=== PATIENT | female | born 1940 | race Caucasian/White ===

== ENCOUNTER 2018-11-09 11:14 | Inpatient (IN) ==
[2018-11-09] MEDS ORDERED: FUROSEMIDE 100 MG/10 ML VIAL IV STA (12:02)
[2018-11-09 12:37] LABS: Basophils # 0.1 10*3/uL (0.0-0.2); Basophils % 0.9 % (0.0-0.8); Eosinophils # 0.2 10*3/uL (0.0-0.87); Eosinophils % 2.9 % (0.00-10.9); Hematocrit 28.8 VOL% (35.7-47.0); Hemoglobin 8.3 GM/DL (12.0-16.0); Immature Granulocytes % 0.5 %; Immature Granulocytes Absolute 0.04 #; Lymphocytes # 0.7 10*3/uL (1.4-4.0); Lymphocytes % 9.5 % (21.3-54.2); Mean Corpuscular HGB Conc 28.8 GM/DL (32-36); Mean Corpuscular Volume 84.2 FL (87-102); Mean Platelet Volume 10.5 FL (9.6-12.0); Monocytes % 11.5 % (1.7-12.7); Neutrophils % 74.7 % (38.7-73.9); Platelet Count 271 T/CUMM (130-400); Red Blood Count 3.42 MC/CUMM (3.8-5.5); Red Cell Distribution Width 17.7 % (9.3-17.3); White Blood Count 7.7 T/CUMM (4-12)
[2018-11-09 12:59] LABS: Hypochromasia 1+; Microcytosis 1+; Ovalocytes Few
[2018-11-09 13:00] LABS: Platelet Estimate Normal; Polychromasia Slight
[2018-11-09 13:02] LABS: Bilirubin,Total 0.4 MG/DL (0.2-1.0); Calcium 7.8 MG/DL (8.5-10.1); Total Protein 4.2 G/DL (6.4-8.3)
[2018-11-09 13:11] LABS: INR 2.8
[2018-11-09 13:12] LABS: PT Patient Result 29.9 SECS
[2018-11-09 13:33] LABS: Apearance,Urine CLEAR (Clear); Urine Color Colorless (Yellow)
[2018-11-09 13:34] LABS: Bacteria,Urine Occasional /HPF (Few); Bilirubin,Urine Negative (Negative); Blood, Urine Negative (Negative); Glucose,Urine (UA) Negative (Negative); Hyaline Casts,Urine 8 /LPF (0-3); Ketones,Urine Negative (Negative); Mucus,Urine Occasional /LPF (Occasional); Nitrite,Urine Negative (Negative); Protein,Urine Negative; RBC,Urine <1 /HPF (0-4); Squamous Epithelial Cell,Urine Occasional /HPF (0-10); Urine Specific Gravity 1.006 (1.001-1.035); Urine Urobilinogen < 2.0 EU/DL (0.2-1.0)
[2018-11-09] MEDS ORDERED: ACETAMINOPHEN 325 MG TABLET PO PRN (15:57)
[2018-11-09] MEDS ORDERED: BISACODYL 5 MG TABLET PO PRN (15:57)
[2018-11-09] MEDS ORDERED: diphenhydrAMINE CAP 25 MG CAPSULE PO PRN (15:57)
[2018-11-09] MEDS ORDERED: guaiFENesin/DM ER 600-30 MG TABLET PO PRN (15:57)
[2018-11-09] MEDS ORDERED: ONDANSETRON 4 MG/2 ML VIAL IV PRN (15:57)
[2018-11-09] MEDS ORDERED: DOCUSATE SODIUM 100 MG CAPSULE PO PRN (15:57)
[2018-11-09] MEDS ORDERED: ENOXAPARIN 40 MG/0.4 ML SYRINGE SUBCUT SCH (16:00)
[2018-11-09] MEDS ORDERED: ALBUMIN 25% 25 GM in PREMIX 1 EACH IV ONE (17:37)
[2018-11-09] MEDS: WARFARIN 2 MG TABLET PO SCH (18:35)
[2018-11-09] MEDS: POTASSIUM CHLORIDE 20 MEQ TABLET PO SCH (21:23)
[2018-11-09] MEDS: SPIRONOLACTONE 25 MG TABLET PO SCH (21:24)
[2018-11-09] MEDS: FUROSEMIDE 40 MG/4 ML VIAL IV SCH (23:47)
[2018-11-10 06:00] LABS: Basophils # 0.1 10*3/uL (0.0-0.2); Basophils % 0.7 % (0.0-0.8); Eosinophils # 0.3 10*3/uL (0.0-0.87); Eosinophils % 3.7 % (0.00-10.9); Hematocrit 27.3 VOL% (35.7-47.0); Hemoglobin 7.8 GM/DL (12.0-16.0); INR 2.9; Immature Granulocytes % 0.7 %; Immature Granulocytes Absolute 0.05 #; Lymphocytes # 0.6 10*3/uL (1.4-4.0); Lymphocytes % 8.2 % (21.3-54.2); Mean Corpuscular HGB Conc 28.6 GM/DL (32-36); Mean Corpuscular Volume 83.7 FL (87-102); Mean Platelet Volume 11.3 FL (9.6-12.0); Monocytes % 12.4 % (1.7-12.7); Neutrophils % 74.3 % (38.7-73.9); Platelet Count 255 T/CUMM (130-400); Red Blood Count 3.26 MC/CUMM (3.8-5.5); Red Cell Distribution Width 17.9 % (9.3-17.3); White Blood Count 7.1 T/CUMM (4-12)
[2018-11-10 06:01] LABS: % Iron Saturation 4.6 % (18-50); Albumin 2.3 G/DL (3.4-5.0); Bilirubin,Direct 0.17 MG/DL (0.0-0.20); Bilirubin,Indirect 0.9 MG/DL (0.0-1.0); Bilirubin,Total 1.1 MG/DL (0.2-1.0); Ferritin 8.5 ng/ml (8-252); Total Protein 4.8 G/DL (6.4-8.3)
[2018-11-10 06:03] LABS: Calcium 7.9 MG/DL (8.5-10.1); Thyroid Stimulating Hormone 0.834 uIU/ml (0.358-3.74)
[2018-11-10 06:20] LABS: PT Patient Result 30.8 SECS
[2018-11-10] MEDS ORDERED: FUROSEMIDE 40 MG/4 ML VIAL IV SCH (08:00)
[2018-11-10] MEDS: FUROSEMIDE 40 MG/4 ML VIAL IV SCH ×2 (08:22→16:28)
[2018-11-10] MEDS: POTASSIUM CHLORIDE 20 MEQ TABLET PO SCH ×2 (08:23→21:20)
[2018-11-10] MEDS: hydroCHLOROthiazide 12.5 MG CAPSULE PO SCH (08:23)
[2018-11-10] MEDS: PANTOPRAZOLE 40 MG TABLET PO SCH (08:23)
[2018-11-10] MEDS: LOSARTAN 25 MG TABLET PO SCH (08:23)
[2018-11-10] MEDS: ALLOPURINOL 300 MG TABLET PO SCH (08:23)
[2018-11-10 12:31] LABS: Immunoglobulin A 215 MG/DL (70-400); Immunoglobulin G 349 MG/DL (700-1600); Immunoglobulin M 38 MG/DL (40-230)
[2018-11-10] MEDS ORDERED: ALBUMIN 25% 25 GM in PREMIX 1 EACH IV ONE (18:00)
[2018-11-10] MEDS: WARFARIN 2 MG TABLET PO SCH (18:15)
[2018-11-10] MEDS: SPIRONOLACTONE 25 MG TABLET PO SCH (21:20)
[2018-11-11 06:56] LABS: Basophils % 0.5 % (0.0-0.8); Eosinophils # 0.3 10*3/uL (0.0-0.87); Eosinophils % 4.1 % (0.00-10.9); Hematocrit 26.7 VOL% (35.7-47.0); Hemoglobin 7.9 GM/DL (12.0-16.0); Immature Granulocytes % 0.8 %; Immature Granulocytes Absolute 0.06 #; Lymphocytes # 0.8 10*3/uL (1.4-4.0); Mean Corpuscular HGB Conc 29.6 GM/DL (32-36); Mean Corpuscular Volume 82.9 FL (87-102); Mean Platelet Volume 11.2 FL (9.6-12.0); Monocytes % 10.1 % (1.7-12.7); Neutrophils % 73.5 % (38.7-73.9); Platelet Count 278 T/CUMM (130-400); Red Blood Count 3.22 MC/CUMM (3.8-5.5); White Blood Count 7.6 T/CUMM (4-12)
[2018-11-11 06:59] LABS: INR 2.2
[2018-11-11 07:01] LABS: PT Patient Result 23.3 SECS
[2018-11-11 07:19] LABS: Albumin 2.4 G/DL (3.4-5.0); Bilirubin,Direct 0.15 MG/DL (0.0-0.20); Bilirubin,Indirect 0.7 MG/DL (0.0-1.0); Bilirubin,Total 0.8 MG/DL (0.2-1.0); Calcium 7.9 MG/DL (8.5-10.1); Total Protein 4.7 G/DL (6.4-8.3)
[2018-11-11 07:27] LABS: Folate 11.6 NG/ML (5.4-24.0)
[2018-11-11] MEDS: FUROSEMIDE 40 MG/4 ML VIAL IV SCH ×3 (09:04→16:46)
[2018-11-11] MEDS: LOSARTAN 25 MG TABLET PO SCH (10:01)
[2018-11-11] MEDS: hydroCHLOROthiazide 12.5 MG CAPSULE PO SCH (10:02)
[2018-11-11] MEDS: POTASSIUM CHLORIDE 20 MEQ TABLET PO SCH ×2 (10:02→21:49)
[2018-11-11] MEDS: PANTOPRAZOLE 40 MG TABLET PO SCH (10:02)
[2018-11-11] MEDS: ALLOPURINOL 300 MG TABLET PO SCH (10:03)
[2018-11-11] MEDS ORDERED: IRON SUCROSE 300 MG in SODIUM CHLORIDE 0.9% 100 ML IV ONE (11:41)
[2018-11-11] MEDS: CYANOCOBALAMIN 1000 MCG/1 ML VIAL SUBCUT SCH (12:02)
[2018-11-11 15:11] LABS: Total Protein 24 Hr Ur Result 122 MG/24HR (0-149.1); Total Volume,Urine 1750 ML (400-2000)
[2018-11-11] MEDS: ALBUMIN 25% 12.5 GM in PREMIX 1 EACH IV SCH (17:08)
[2018-11-11] MEDS: WARFARIN 2 MG TABLET PO SCH (17:09)
[2018-11-11] MEDS: SPIRONOLACTONE 25 MG TABLET PO SCH (21:49)
[2018-11-12] MEDS: ACETAMINOPHEN 500 MG TABLET PO PRN ×2 (01:17→22:46)
[2018-11-12] MEDS: ALBUMIN 25% 12.5 GM in PREMIX 1 EACH IV SCH ×3 (01:18→20:26)
[2018-11-12 06:32] LABS: Basophils % 0.8 % (0.0-0.8); Hematocrit 26.5 VOL% (35.7-47.0); Hemoglobin 7.5 GM/DL (12.0-16.0); Lymphocytes % 10.1 % (21.3-54.2); Mean Corpuscular HGB Conc 28.3 GM/DL (32-36); Mean Corpuscular Volume 84.1 FL (87-102); Mean Platelet Volume 10.8 FL (9.6-12.0); Monocytes % 13.3 % (1.7-12.7); Neutrophils % 70.1 % (38.7-73.9); Platelet Count 246 T/CUMM (130-400); Red Blood Count 3.15 MC/CUMM (3.8-5.5); White Blood Count 7.2 T/CUMM (4-12)
[2018-11-12 06:33] LABS: Basophils # 0.1 10*3/uL (0.0-0.2); Eosinophils # 0.4 10*3/uL (0.0-0.87); Immature Granulocytes % 0.7 %; Immature Granulocytes Absolute 0.05 #; Lymphocytes # 0.7 10*3/uL (1.4-4.0); NRBC # 0.02 10*3/uL
[2018-11-12 06:43] LABS: INR 2.6
[2018-11-12 06:46] LABS: Calcium 7.9 MG/DL (8.5-10.1); Osmolality,Calculated 291.3 MOS/KG (273-304)
[2018-11-12 06:47] LABS: PT Patient Result 27.5 SECS
[2018-11-12 07:30] LABS: Hypochromasia 2+; Macrocytosis Slight; Microcytosis 1+; Ovalocytes Few; Polychromasia Few; Schistocytes Few
[2018-11-12 07:31] LABS: Elliptocytes Few
[2018-11-12 07:32] LABS: Platelet Estimate Normal
[2018-11-12] MEDS: CHOLECALCIFEROL 5,000 UNIT TABLET PO SCH (08:10)
[2018-11-12] MEDS: ALLOPURINOL 100 MG TABLET PO SCH (08:10)
[2018-11-12] MEDS: POTASSIUM CHLORIDE 20 MEQ TABLET PO SCH ×2 (08:10→20:25)
[2018-11-12] MEDS: PANTOPRAZOLE 40 MG TABLET PO SCH (08:11)
[2018-11-12] MEDS: CYANOCOBALAMIN 1000 MCG/1 ML VIAL SUBCUT SCH (08:14)
[2018-11-12] MEDS: LOSARTAN 25 MG TABLET PO SCH (08:42)
[2018-11-12] MEDS: hydroCHLOROthiazide 12.5 MG CAPSULE PO SCH (08:42)
[2018-11-12] MEDS: FUROSEMIDE 40 MG/4 ML VIAL IV SCH ×2 (08:53→15:44)
[2018-11-12] MEDS: WARFARIN 2 MG TABLET PO SCH (18:18)
[2018-11-12] MEDS: SPIRONOLACTONE 25 MG TABLET PO SCH (20:25)
[2018-11-13] MEDS: ALBUMIN 25% 12.5 GM in PREMIX 1 EACH IV SCH ×2 (07:26→09:00)
[2018-11-13] MEDS: CYANOCOBALAMIN 1000 MCG/1 ML VIAL SUBCUT SCH (08:11)
[2018-11-13] MEDS: ALLOPURINOL 100 MG TABLET PO SCH (08:11)
[2018-11-13] MEDS: FUROSEMIDE 40 MG/4 ML VIAL IV SCH (08:11)
[2018-11-13] MEDS: PANTOPRAZOLE 40 MG TABLET PO SCH (08:12)
[2018-11-13] MEDS: POTASSIUM CHLORIDE 20 MEQ TABLET PO SCH (08:12)
[2018-11-13] MEDS: CHOLECALCIFEROL 5,000 UNIT TABLET PO SCH (08:12)
[2018-11-13 08:52] VITALS: BP 117/57
[2018-11-15 09:32] LABS: Immunoglobulin A (Chem) 215 MG/DL (70-400); Immunoglobulin G (Chem) 349 MG/DL (700-1600); Immunoglobulin M (Chem) 38 MG/DL (40-230)
[2018-11-16 12:11] LABS: Immuno Free Light Chain Kappa 10.82 MG/DL (0.33-1.94); Immuno Free Light Chain Lambda 3.31 MG/DL (0.57-2.63); Immuno Free Light Chain Ratio 3.27 MG/DL (0.26-1.65)
== END 2018-11-13 13:08 | disposition home or self-care (01) | DRG 843 ==
LOC: N.ED 11:14 → N.EDINP 15:57 → N.5E 16:26
PROVIDERS: ADMIT Internal Medicine; ATTEND Internal Medicine

== ENCOUNTER 2019-04-23 07:30 | Inpatient (IN) ==
[2019-04-23 08:39] LABS: Basophils # 0.1 10*3/uL (0.0-0.2); Basophils % 1.1 % (0.0-0.8); Eosinophils # 0.2 10*3/uL (0.0-0.87); Eosinophils % 2.4 % (0.00-10.9); Hematocrit 34.3 VOL% (35.7-47.0); Hemoglobin 10.6 GM/DL (12.0-16.0); Immature Granulocytes % 0.5 %; Immature Granulocytes Absolute 0.04 #; Lymphocytes # 0.6 10*3/uL (1.4-4.0); Lymphocytes % 6.9 % (21.3-54.2); Mean Corpuscular HGB Conc 30.9 GM/DL (32-36); Mean Corpuscular Volume 94.8 FL (87-102); Monocytes % 10.2 % (1.7-12.7); Neutrophils % 78.9 % (38.7-73.9); Platelet Count 245 T/CUMM (130-400); Red Blood Count 3.62 MC/CUMM (3.8-5.5); Red Cell Distribution Width 15.2 % (9.3-17.3)
[2019-04-23 08:58] LABS: INR 3.6; PT Patient Result 38.7 SECS (9.6-12.2); Partial Thromboplastin Time 47.5 SECS (20.8-36.0)
[2019-04-23 09:12] LABS: Alanine Aminotransferase 15 U/L (13-56); Albumin 1.7 G/DL (3.4-5.0); Alkaline Phosphatase 71 U/L (45-117); Aspartate Amino Transferase 33 U/L (0-37); Bilirubin,Total < 0.39 MG/DL (0.2-1.0); Blood Urea Nitrogen 31 MG/DL (7-18); Calcium 7.9 MG/DL (8.5-10.1); Estimated Glom Filtration Rate 76 ML/MIN; Glucose 109 MG/DL (74-106); Osmolality,Calculated 290.1 MOS/KG (273-304); Total Protein 5.3 G/DL (6.4-8.3)
[2019-04-23] MEDS ORDERED: FUROSEMIDE 40 MG/4 ML VIAL IV STA (09:19)
[2019-04-23 10:47] LABS: Apearance,Urine CLEAR (Clear); Bilirubin,Urine Negative (Negative); Blood, Urine Negative (Negative); Glucose,Urine (UA) Negative (Negative); Hyaline Casts,Urine 1 /LPF (0-3); Ketones,Urine Negative (Negative); Nitrite,Urine Negative (Negative); Protein,Urine Negative; RBC,Urine <1 /HPF (0-4); Squamous Epithelial Cell,Urine Occasional /HPF (0-10); Urine Color Straw (Yellow); Urine Specific Gravity 1.005 (1.001-1.035); Urine Urobilinogen < 2.0 EU/DL (0.2-1.0); WBC,Urine 1 /HPF (0-6)
[2019-04-23] MEDS ORDERED: MORPHINE 4 MG/1 ML VIAL IV PRN (10:56)
[2019-04-23] MEDS ORDERED: CYANOCOBALAMIN 1000 MCG/1 ML VIAL SUBCUT SCH (12:22)
[2019-04-23] MEDS ORDERED: ALBUMIN 25% 25 GM in PREMIX 1 EACH IV ONE (13:00)
[2019-04-23 13:43] LABS: Basophils # 0.1 10*3/uL (0.0-0.2); Eosinophils # 0.2 10*3/uL (0.0-0.87); Eosinophils % 2.2 % (0.00-10.9); Hematocrit 31.1 VOL% (35.7-47.0); Hemoglobin 9.7 GM/DL (12.0-16.0); Immature Granulocytes % 0.3 %; Immature Granulocytes Absolute 0.02 #; Lymphocytes # 0.5 10*3/uL (1.4-4.0); Lymphocytes % 7.9 % (21.3-54.2); Mean Corpuscular HGB Conc 31.2 GM/DL (32-36); Mean Corpuscular Volume 94.8 FL (87-102); Mean Platelet Volume 10.7 FL (9.6-12.0); Monocytes % 9.7 % (1.7-12.7); Neutrophils % 78.9 % (38.7-73.9); Platelet Count 217 T/CUMM (130-400); Red Blood Count 3.28 MC/CUMM (3.8-5.5); Red Cell Distribution Width 15.3 % (9.3-17.3); White Blood Count 6.8 T/CUMM (4-12)
[2019-04-23] MEDS: POTASSIUM CHLORIDE 20 MEQ TABLET PO SCH ×3 (14:15→21:34)
[2019-04-23 14:16] LABS: Alanine Aminotransferase 14 U/L (13-56); Albumin 1.6 G/DL (3.4-5.0); Alkaline Phosphatase 58 U/L (45-117); Aspartate Amino Transferase 30 U/L (0-37); Bilirubin,Total < 0.39 MG/DL (0.2-1.0); Blood Urea Nitrogen 29 MG/DL (7-18); Calcium 7.6 MG/DL (8.5-10.1); Estimated Glom Filtration Rate 66 ML/MIN; Glucose 126 MG/DL (74-106); Osmolality,Calculated 293.8 MOS/KG (273-304); Total Protein 4.4 G/DL (6.4-8.3)
[2019-04-23] MEDS: ALBUMIN 25% 25 GM in PREMIX 1 EACH IV SCH ×2 (14:16→18:30)
[2019-04-23] MEDS: FUROSEMIDE 40 MG/4 ML VIAL IV SCH (18:09)
[2019-04-23] MEDS ORDERED: hydroCHLOROthiazide 12.5 MG CAPSULE PO SCH (21:00)
[2019-04-23] MEDS: metOLazone 5 MG TABLET PO SCH (21:34)
[2019-04-23] MEDS: DOCUSATE SODIUM 100 MG CAPSULE PO SCH (21:34)
[2019-04-23] MEDS: ACETAMINOPHEN 325 MG TABLET PO PRN (21:36)
[2019-04-24 06:23] LABS: Basophils # 0.1 10*3/uL (0.0-0.2); Eosinophils # 0.4 10*3/uL (0.0-0.87); Hematocrit 29.2 VOL% (35.7-47.0); Hemoglobin 9.1 GM/DL (12.0-16.0); Immature Granulocytes % 0.3 %; Immature Granulocytes Absolute 0.02 #; Lymphocytes # 0.6 10*3/uL (1.4-4.0); Lymphocytes % 10.1 % (21.3-54.2); Mean Corpuscular HGB Conc 31.2 GM/DL (32-36); Mean Corpuscular Volume 95.4 FL (87-102); Mean Platelet Volume 11.1 FL (9.6-12.0); Monocytes % 12.9 % (1.7-12.7); Neutrophils % 68.7 % (38.7-73.9); Platelet Count 219 T/CUMM (130-400); Red Blood Count 3.06 MC/CUMM (3.8-5.5); Red Cell Distribution Width 15.5 % (9.3-17.3)
[2019-04-24] MEDS: ALBUMIN 25% 25 GM in PREMIX 1 EACH IV SCH ×2 (06:37→18:40)
[2019-04-24 06:41] LABS: INR 3.7
[2019-04-24 06:42] LABS: PT Patient Result 39.8 SECS (9.6-12.2)
[2019-04-24 06:49] LABS: Calcium 7.7 MG/DL (8.5-10.1); Osmolality,Calculated 294.7 MOS/KG (273-304)
[2019-04-24] MEDS: FUROSEMIDE 40 MG/4 ML VIAL IV SCH ×2 (09:36→16:57)
[2019-04-24] MEDS: DOCUSATE SODIUM 100 MG CAPSULE PO SCH ×2 (09:37→21:53)
[2019-04-24] MEDS: PANTOPRAZOLE 40 MG TABLET PO SCH (09:38)
[2019-04-24] MEDS: CITALOPRAM 20 MG TABLET PO SCH (09:38)
[2019-04-24] MEDS: POTASSIUM CHLORIDE 20 MEQ TABLET PO SCH ×4 (09:38→21:53)
[2019-04-24] MEDS: metOLazone 5 MG TABLET PO SCH ×2 (09:38→21:54)
[2019-04-24] MEDS: ALLOPURINOL 300 MG TABLET PO PRN (23:33)
[2019-04-24] MEDS: ACETAMINOPHEN 325 MG TABLET PO PRN (23:33)
[2019-04-25 04:44] LABS: Basophils # 0.1 10*3/uL (0.0-0.2); Basophils % 0.8 % (0.0-0.8); Eosinophils # 0.5 10*3/uL (0.0-0.87); Eosinophils % 7.3 % (0.00-10.9); Hematocrit 28.6 VOL% (35.7-47.0); Hemoglobin 8.8 GM/DL (12.0-16.0); Immature Granulocytes % 0.3 %; Immature Granulocytes Absolute 0.02 #; Lymphocytes # 0.5 10*3/uL (1.4-4.0); Lymphocytes % 7.3 % (21.3-54.2); Mean Corpuscular HGB Conc 30.8 GM/DL (32-36); Mean Platelet Volume 11.3 FL (9.6-12.0); Monocytes % 10.9 % (1.7-12.7); Neutrophils % 73.4 % (38.7-73.9); Platelet Count 209 T/CUMM (130-400); Red Blood Count 2.98 MC/CUMM (3.8-5.5); Red Cell Distribution Width 15.7 % (9.3-17.3); White Blood Count 6.6 T/CUMM (4-12)
[2019-04-25 04:57] LABS: INR 2.4
[2019-04-25 05:01] LABS: Osmolality,Calculated 290.1 MOS/KG (273-304)
[2019-04-25 05:09] LABS: PT Patient Result 25.5 SECS (9.6-12.2)
[2019-04-25] MEDS: ALBUMIN 25% 25 GM in PREMIX 1 EACH IV SCH ×2 (06:07→19:42)
[2019-04-25] MEDS: FUROSEMIDE 40 MG/4 ML VIAL IV SCH ×2 (09:18→16:05)
[2019-04-25] MEDS: CITALOPRAM 20 MG TABLET PO SCH (09:19)
[2019-04-25] MEDS: metOLazone 5 MG TABLET PO SCH (09:19)
[2019-04-25] MEDS: POTASSIUM CHLORIDE 20 MEQ TABLET PO SCH ×4 (09:19→20:42)
[2019-04-25] MEDS: DOCUSATE SODIUM 100 MG CAPSULE PO SCH ×2 (09:20→20:41)
[2019-04-25] MEDS: PANTOPRAZOLE 40 MG TABLET PO SCH (09:20)
[2019-04-25] MEDS ORDERED: metOLazone 5 MG TABLET PO SCH (15:30)
[2019-04-25] MEDS: ALLOPURINOL 300 MG TABLET PO PRN (20:41)
[2019-04-26 05:42] LABS: Basophils % 0.5 % (0.0-0.8); Eosinophils # 0.4 10*3/uL (0.0-0.87); Eosinophils % 5.8 % (0.00-10.9); Hematocrit 28.9 VOL% (35.7-47.0); Hemoglobin 9.1 GM/DL (12.0-16.0); Immature Granulocytes % 0.4 %; Immature Granulocytes Absolute 0.03 #; Lymphocytes # 0.6 10*3/uL (1.4-4.0); Lymphocytes % 8.4 % (21.3-54.2); Mean Corpuscular HGB Conc 31.5 GM/DL (32-36); Mean Platelet Volume 11.6 FL (9.6-12.0); Monocytes % 10.1 % (1.7-12.7); Neutrophils % 74.8 % (38.7-73.9); Platelet Count 214 T/CUMM (130-400); Red Blood Count 3.01 MC/CUMM (3.8-5.5); Red Cell Distribution Width 16.5 % (9.3-17.3); White Blood Count 7.7 T/CUMM (4-12)
[2019-04-26 05:44] LABS: INR 1.5; PT Patient Result 16.5 SECS (9.6-12.2)
[2019-04-26 06:08] LABS: Calcium 7.7 MG/DL (8.5-10.1); Osmolality,Calculated 298.6 MOS/KG (273-304)
[2019-04-26] MEDS ORDERED: POTASSIUM CHLORIDE 20 MEQ TABLET PO ONE (07:36)
[2019-04-26] MEDS: CITALOPRAM 20 MG TABLET PO SCH (08:25)
[2019-04-26] MEDS: DOCUSATE SODIUM 100 MG CAPSULE PO SCH ×2 (08:26→20:09)
[2019-04-26] MEDS: PANTOPRAZOLE 40 MG TABLET PO SCH (08:26)
[2019-04-26] MEDS: POTASSIUM CHLORIDE 20 MEQ TABLET PO SCH ×4 (08:28→20:09)
[2019-04-26] MEDS ORDERED: metOLazone 5 MG TABLET PO SCH (09:00)
[2019-04-26] MEDS: FUROSEMIDE 40 MG/4 ML VIAL IV SCH ×2 (09:24→16:22)
[2019-04-26] MEDS: ALBUMIN 25% 25 GM in PREMIX 1 EACH IV SCH ×2 (11:17→22:27)
[2019-04-26] MEDS ORDERED: MAGNESIUM SULF RIDER 2 GM in PREMIX 1 EACH IV ONE (15:02)
[2019-04-26] MEDS ORDERED: MAGNESIUM SULF RIDER 2 GM in PREMIX 1 EACH IV PRN (15:10)
[2019-04-26 16:58] LABS: Glucose,Pleural Fluid 132 MG/DL; LDH,Body Fluid 76 U/L; Total Protein,Body Fluid < 1.0 G/DL
[2019-04-26 17:03] LABS: Eosinophils,Pleural Fluid 1 %; Lymphocytes,Pleural Fluid 72 %; Monocytes,Pleural Fluid 6 %; Neutrophils,Pleural Fluid 21 %
[2019-04-26 17:04] LABS: RBC,Pleural Fluid 507 T/CUMM
[2019-04-26] MEDS: ONDANSETRON 4 MG/2 ML VIAL IV PRN (20:08)
[2019-04-26] MEDS: MAGNESIUM OXIDE 400 MG TABLET PO SCH (20:09)
[2019-04-27 03:28] LABS: Basophils # 0.1 10*3/uL (0.0-0.2); Basophils % 0.7 % (0.0-0.8); Eosinophils # 0.4 10*3/uL (0.0-0.87); Hematocrit 29.6 VOL% (35.7-47.0); Hemoglobin 9.2 GM/DL (12.0-16.0); Immature Granulocytes % 0.4 %; Immature Granulocytes Absolute 0.04 #; Lymphocytes # 0.6 10*3/uL (1.4-4.0); Mean Corpuscular HGB Conc 31.1 GM/DL (32-36); Mean Platelet Volume 10.7 FL (9.6-12.0); Monocytes % 6.9 % (1.7-12.7); Platelet Count 199 T/CUMM (130-400); Red Blood Count 3.05 MC/CUMM (3.8-5.5); Red Cell Distribution Width 16.9 % (9.3-17.3); White Blood Count 9.1 T/CUMM (4-12)
[2019-04-27 03:36] LABS: INR 1.4
[2019-04-27 03:45] LABS: Calcium 7.7 MG/DL (8.5-10.1)
[2019-04-27] MEDS: POTASSIUM CHLORIDE RIDER 10 MEQ in PREMIX 1 EACH IV PRN ×2 (04:10→05:10)
[2019-04-27] MEDS ORDERED: HEPARIN/NACL 0.9% 2 UNITS/ML 0 ML IV ONE (06:49)
[2019-04-27] MEDS ORDERED: LIDOCAINE 1% 20 ML VIAL ONE (06:49)
[2019-04-27] MEDS ORDERED: DIAZEPAM 5 MG TABLET PO ONE (07:00)
[2019-04-27] MEDS ORDERED: diphenhydrAMINE CAP 25 MG CAPSULE PO ONE (07:00)
[2019-04-27] MEDS ORDERED: POTASSIUM CHLORIDE 20 MEQ TABLET PO ONE ×2 (07:15→11:00)
[2019-04-27] MEDS: SPIRONOLACTONE 50 MG TABLET PO SCH (11:12)
[2019-04-27] MEDS: CITALOPRAM 20 MG TABLET PO SCH (11:12)
[2019-04-27] MEDS: PANTOPRAZOLE 40 MG TABLET PO SCH (11:13)
[2019-04-27] MEDS: POTASSIUM CHLORIDE 20 MEQ TABLET PO SCH ×4 (11:13→20:32)
[2019-04-27] MEDS: MAGNESIUM OXIDE 400 MG TABLET PO SCH ×2 (11:13→20:32)
[2019-04-27] MEDS: DOCUSATE SODIUM 100 MG CAPSULE PO SCH ×2 (11:17→20:32)
[2019-04-27] MEDS: FUROSEMIDE 40 MG/4 ML VIAL IV SCH ×2 (11:42→16:51)
[2019-04-27] MEDS: ALBUMIN 25% 25 GM in PREMIX 1 EACH IV SCH ×2 (11:46→23:55)
[2019-04-27] MEDS: HEPARIN DRIP 25,000 UNITS/500 ML PREMIX IV SCH (13:04)
[2019-04-27 19:57] LABS: Total Protein 24 Hr Ur Result 114 MG/24HR (0-149.1); Total Volume,Urine 1900 ML (400-2000)
[2019-04-28 06:19] LABS: INR 1.3; PT Patient Result 14.4 SECS (9.6-12.2)
[2019-04-28 06:21] LABS: Basophils # 0.1 10*3/uL (0.0-0.2); Basophils % 0.9 % (0.0-0.8); Eosinophils # 0.7 10*3/uL (0.0-0.87); Eosinophils % 7.7 % (0.00-10.9); Hematocrit 30.6 VOL% (35.7-47.0); Hemoglobin 9.4 GM/DL (12.0-16.0); Immature Granulocytes % 0.4 %; Immature Granulocytes Absolute 0.03 #; Lymphocytes # 0.6 10*3/uL (1.4-4.0); Lymphocytes % 6.9 % (21.3-54.2); Mean Corpuscular HGB Conc 30.7 GM/DL (32-36); Mean Corpuscular Volume 98.4 FL (87-102); Mean Platelet Volume 11.6 FL (9.6-12.0); Monocytes % 9.7 % (1.7-12.7); Neutrophils % 74.4 % (38.7-73.9); Platelet Count 200 T/CUMM (130-400); Red Blood Count 3.11 MC/CUMM (3.8-5.5); Red Cell Distribution Width 17.4 % (9.3-17.3); White Blood Count 8.6 T/CUMM (4-12)
[2019-04-28 06:23] LABS: Calcium 7.7 MG/DL (8.5-10.1); Osmolality,Calculated 297.1 MOS/KG (273-304)
[2019-04-28] MEDS ORDERED: POTASSIUM CHLORIDE RIDER 10 MEQ in PREMIX 1 EACH IV PRN (07:00)
[2019-04-28] MEDS: CITALOPRAM 20 MG TABLET PO SCH ×2 (07:12→09:40)
[2019-04-28] MEDS: POTASSIUM CHLORIDE 20 MEQ TABLET PO SCH ×5 (07:14→20:43)
[2019-04-28] MEDS: PANTOPRAZOLE 40 MG TABLET PO SCH ×2 (07:15→09:41)
[2019-04-28] MEDS: MAGNESIUM OXIDE 400 MG TABLET PO SCH ×3 (07:15→20:43)
[2019-04-28] MEDS: FUROSEMIDE 40 MG/4 ML VIAL IV SCH ×4 (07:16→17:25)
[2019-04-28] MEDS ORDERED: HEPARIN/NACL 0.9% 2 UNITS/ML 500 ML IV ONE (07:21)
[2019-04-28] MEDS ORDERED: LIDOCAINE 1% 20 ML VIAL ONE (07:21)
[2019-04-28] MEDS ORDERED: fentaNYL 100 MCG/2 ML VIAL ONE (07:48)
[2019-04-28] MEDS ORDERED: MIDAZOLAM 2 MG/2 ML VIAL ONE (07:48)
[2019-04-28] MEDS ORDERED: DIAZEPAM 5 MG TABLET PO ONE (08:00)
[2019-04-28] MEDS ORDERED: diphenhydrAMINE CAP 25 MG CAPSULE PO ONE (08:00)
[2019-04-28] MEDS: DOCUSATE SODIUM 100 MG CAPSULE PO SCH ×2 (09:50→20:43)
[2019-04-28] MEDS: SPIRONOLACTONE 50 MG TABLET PO SCH (09:50)
[2019-04-28] MEDS: WARFARIN 2 MG TABLET PO SCH (17:23)
[2019-04-29 01:41] LABS: Basophils # 0.1 10*3/uL (0.0-0.2); Basophils % 0.8 % (0.0-0.8); Eosinophils # 0.6 10*3/uL (0.0-0.87); Eosinophils % 7.3 % (0.00-10.9); Hematocrit 31.6 VOL% (35.7-47.0); Hemoglobin 9.7 GM/DL (12.0-16.0); Immature Granulocytes % 0.4 %; Immature Granulocytes Absolute 0.03 #; Lymphocytes # 0.6 10*3/uL (1.4-4.0); Mean Corpuscular HGB Conc 30.7 GM/DL (32-36); Mean Corpuscular Volume 99.4 FL (87-102); Mean Platelet Volume 11.3 FL (9.6-12.0); Monocytes % 10.8 % (1.7-12.7); Neutrophils % 73.7 % (38.7-73.9); Platelet Count 177 T/CUMM (130-400); Red Blood Count 3.18 MC/CUMM (3.8-5.5); Red Cell Distribution Width 17.3 % (9.3-17.3); White Blood Count 8.5 T/CUMM (4-12)
[2019-04-29 01:50] LABS: INR 1.2; PT Patient Result 12.7 SECS (9.6-12.2)
[2019-04-29 02:02] LABS: Calcium 7.5 MG/DL (8.5-10.1); Osmolality,Calculated 294.3 MOS/KG (273-304)
[2019-04-29] MEDS: HEPARIN DRIP 25,000 UNITS/500 ML PREMIX IV SCH (02:31)
[2019-04-29] MEDS: DOCUSATE SODIUM 100 MG CAPSULE PO SCH ×2 (08:53→20:27)
[2019-04-29] MEDS: PANTOPRAZOLE 40 MG TABLET PO SCH (08:53)
[2019-04-29] MEDS: CITALOPRAM 20 MG TABLET PO SCH (08:53)
[2019-04-29] MEDS: FUROSEMIDE 40 MG/4 ML VIAL IV SCH ×2 (08:53→16:26)
[2019-04-29] MEDS: MAGNESIUM OXIDE 400 MG TABLET PO SCH ×2 (08:53→20:27)
[2019-04-29] MEDS: POTASSIUM CHLORIDE 20 MEQ TABLET PO SCH ×4 (08:53→20:27)
[2019-04-29] MEDS: SPIRONOLACTONE 50 MG TABLET PO SCH (08:53)
[2019-04-29] MEDS ORDERED: POTASSIUM CHLORIDE 20 MEQ TABLET PO PRN (10:42)
[2019-04-29] MEDS ORDERED: WARFARIN 2 MG TABLET PO SCH (18:00)
[2019-04-29] MEDS: ONDANSETRON 4 MG/2 ML VIAL IV PRN (20:38)
[2019-04-30] MEDS: HEPARIN DRIP 25,000 UNITS/500 ML PREMIX IV SCH (01:00)
[2019-04-30 05:15] LABS: Basophils # 0.1 10*3/uL (0.0-0.2); Basophils % 0.7 % (0.0-0.8); Eosinophils # 0.6 10*3/uL (0.0-0.87); Eosinophils % 8.2 % (0.00-10.9); Hematocrit 31.4 VOL% (35.7-47.0); Hemoglobin 9.9 GM/DL (12.0-16.0); Immature Granulocytes % 0.6 %; Immature Granulocytes Absolute 0.04 #; Lymphocytes # 0.7 10*3/uL (1.4-4.0); Lymphocytes % 9.5 % (21.3-54.2); Mean Corpuscular HGB Conc 31.5 GM/DL (32-36); Mean Corpuscular Volume 98.1 FL (87-102); Mean Platelet Volume 11.1 FL (9.6-12.0); Monocytes % 11.8 % (1.7-12.7); Neutrophils % 69.2 % (38.7-73.9); Platelet Count 182 T/CUMM (130-400); Red Cell Distribution Width 17.7 % (9.3-17.3)
[2019-04-30 05:49] LABS: Calcium 7.6 MG/DL (8.5-10.1); Osmolality,Calculated 301.8 MOS/KG (273-304)
[2019-04-30 06:59] LABS: INR 1.4; PT Patient Result 15.1 SECS (9.6-12.2)
[2019-04-30] MEDS: PANTOPRAZOLE 40 MG TABLET PO SCH (08:31)
[2019-04-30] MEDS: metOLazone 5 MG TABLET PO SCH (08:31)
[2019-04-30] MEDS: MAGNESIUM OXIDE 400 MG TABLET PO SCH ×2 (08:31→22:01)
[2019-04-30] MEDS: SPIRONOLACTONE 50 MG TABLET PO SCH (08:31)
[2019-04-30] MEDS: CITALOPRAM 20 MG TABLET PO SCH (08:31)
[2019-04-30] MEDS: POTASSIUM CHLORIDE 20 MEQ TABLET PO SCH ×4 (08:31→22:01)
[2019-04-30] MEDS: DOCUSATE SODIUM 100 MG CAPSULE PO SCH ×2 (08:32→22:01)
[2019-04-30] MEDS: FUROSEMIDE 40 MG/4 ML VIAL IV SCH ×2 (08:32→16:06)
[2019-04-30] MEDS ORDERED: WARFARIN 2 MG TABLET PO ONE (09:15)
[2019-04-30] MEDS: WARFARIN 2 MG TABLET PO SCH (17:08)
[2019-04-30] MEDS: ONDANSETRON 4 MG/2 ML VIAL IV PRN (23:05)
[2019-05-01] MEDS: HEPARIN DRIP 25,000 UNITS/500 ML PREMIX IV SCH ×2 (03:30→03:35)
[2019-05-01 06:17] LABS: Basophils # 0.1 10*3/uL (0.0-0.2); Basophils % 0.8 % (0.0-0.8); Eosinophils # 0.6 10*3/uL (0.0-0.87); Hematocrit 33.3 VOL% (35.7-47.0); Immature Granulocytes % 0.3 %; Immature Granulocytes Absolute 0.02 #; Lymphocytes # 0.6 10*3/uL (1.4-4.0); Lymphocytes % 9.8 % (21.3-54.2); Mean Platelet Volume 11.4 FL (9.6-12.0); Monocytes % 12.8 % (1.7-12.7); Neutrophils % 67.3 % (38.7-73.9); Platelet Count 196 T/CUMM (130-400); Red Blood Count 3.33 MC/CUMM (3.8-5.5); Red Cell Distribution Width 17.4 % (9.3-17.3); White Blood Count 6.4 T/CUMM (4-12)
[2019-05-01 06:32] LABS: Calcium 7.7 MG/DL (8.5-10.1); Osmolality,Calculated 301.8 MOS/KG (273-304)
[2019-05-01 06:46] LABS: INR 2.1
[2019-05-01 06:54] LABS: PT Patient Result 22.3 SECS (9.6-12.2); Partial Thromboplastin Time 65.1 SECS (20.8-36.0)
[2019-05-01 08:10] VITALS: BP 130/61
[2019-05-01] MEDS ORDERED: WARFARIN 1 MG TABLET PO ONE (08:31)
[2019-05-01] MEDS: DOCUSATE SODIUM 100 MG CAPSULE PO SCH (09:16)
[2019-05-01] MEDS: SPIRONOLACTONE 50 MG TABLET PO SCH (09:16)
[2019-05-01] MEDS: PANTOPRAZOLE 40 MG TABLET PO SCH (09:16)
[2019-05-01] MEDS: metOLazone 5 MG TABLET PO SCH (09:16)
[2019-05-01] MEDS: CITALOPRAM 20 MG TABLET PO SCH (09:16)
[2019-05-01] MEDS: MAGNESIUM OXIDE 400 MG TABLET PO SCH (09:17)
[2019-05-01] MEDS: POTASSIUM CHLORIDE 20 MEQ TABLET PO SCH (09:17)
[2019-05-01] MEDS: FUROSEMIDE 40 MG/4 ML VIAL IV SCH (09:17)
== END 2019-05-01 10:13 | disposition home or self-care (01) | DRG 392 ==
LOC: N.ED 07:30 → N.EDINP 10:56 → N.TELES 11:22
PROVIDERS: ADMIT Family Medicine; ATTEND Family Medicine
PROC: IRTHORA (2019-04-26 15:30)

== ENCOUNTER 2019-11-14 19:32 | Inpatient (IN) ==
[2019-11-14] MEDS ORDERED: FUROSEMIDE 100 MG/10 ML VIAL IV STA (22:21)
[2019-11-14] MEDS ORDERED: ONDANSETRON 4 MG/2 ML VIAL IV STA (22:21)
[2019-11-14 23:29] LABS: Apearance,Urine CLEAR (Clear); Bilirubin,Urine Negative (Negative); Blood, Urine Negative (Negative); Glucose,Urine (UA) Negative (Negative); Hyaline Casts,Urine 1 /LPF (0-3); Ketones,Urine Negative (Negative); Nitrite,Urine Negative (Negative); Protein,Urine Negative; RBC,Urine <1 /HPF (0-4); Squamous Epithelial Cell,Urine Occasional /HPF (0-10); Urine Color Yellow (Yellow); Urine Specific Gravity 1.011 (1.001-1.035); Urine Urobilinogen < 2.0 EU/DL (0.2-1.0); WBC,Urine 1 /HPF (0-6)
[2019-11-15 00:01] LABS: Basophils # 0.1 10*3/uL (0.0-0.2); Basophils % 0.7 % (0.0-0.8); Eosinophils # 0.2 10*3/uL (0.0-0.87); Eosinophils % 1.9 % (0.00-10.9); Hematocrit 21.3 VOL% (35.7-47.0); Immature Granulocytes % 0.7 %; Immature Granulocytes Absolute 0.06 #; Lymphocytes # 0.5 10*3/uL (1.4-4.0); Lymphocytes % 5.5 % (21.3-54.2); Mean Corpuscular HGB Conc 28.2 GM/DL (32-36); Mean Corpuscular Volume 88.8 FL (87-102); Monocytes % 10.5 % (1.7-12.7); Neutrophils % 80.7 % (38.7-73.9); Platelet Count 377 T/CUMM (130-400); Red Cell Distribution Width 19.8 % (9.3-17.3); White Blood Count 8.4 T/CUMM (4-12)
[2019-11-15 00:08] LABS: INR 4.1; PT Patient Result 40.9 SECS (9.8-11.9)
[2019-11-15 00:14] LABS: Alanine Aminotransferase 19 U/L (13-56); Albumin 1.7 G/DL (3.4-5.0); Alkaline Phosphatase 80 U/L (45-117); Aspartate Amino Transferase 39 U/L (0-37); Bilirubin,Total < 0.39 MG/DL (0.2-1.0); Blood Urea Nitrogen 69 MG/DL (7-18); Calcium 7.5 MG/DL (8.5-10.1); Estimated Glom Filtration Rate 36 ML/MIN; Glucose 111 MG/DL (74-106); Osmolality,Calculated 282.7 MOS/KG (273-304); Total Protein 4.2 G/DL (6.4-8.3)
[2019-11-15] MEDS ORDERED: guaiFENesin/DM ER 600-30 MG TABLET PO PRN (01:30)
[2019-11-15] MEDS ORDERED: SODIUM CHLORIDE 0.9% 1,000 ML IV PRN (01:30)
[2019-11-15] MEDS ORDERED: DEXTROSE 50% 25 GM/50 ML VIAL IV PRN (01:30)
[2019-11-15] MEDS ORDERED: GLUCAGON 1 MG VIAL IM PRN (01:30)
[2019-11-15] MEDS ORDERED: NICOTINE 21 MG/24 HR PATCH TRANSDERM PRN (01:30)
[2019-11-15] MEDS ORDERED: diphenhydrAMINE CAP 25 MG CAPSULE PO PRN (01:30)
[2019-11-15] MEDS ORDERED: hydrALAZINE 20 MG/1 ML VIAL IV PRN (01:30)
[2019-11-15] MEDS ORDERED: ONDANSETRON 4 MG/2 ML VIAL IV PRN (01:30)
[2019-11-15] MEDS ORDERED: MORPHINE 4 MG/1 ML VIAL IV PRN (01:30)
[2019-11-15] MEDS ORDERED: ACETAMINOPHEN 325 MG TABLET PO PRN (01:30)
[2019-11-15] MEDS ORDERED: TEMAZEPAM 15 MG CAPSULE ONE (03:40)
[2019-11-15] MEDS: TEMAZEPAM 15 MG CAPSULE PO PRN ×2 (03:45→21:58)
[2019-11-15] MEDS ORDERED: ALBUMIN 5% 25 GM in PREMIX 1 EACH IV ONE (04:00)
[2019-11-15] MEDS: SODIUM CHLORIDE 0.9% 1,000 ML IV SCH (04:24)
[2019-11-15 04:29] LABS: Basophils # 0.1 10*3/uL (0.0-0.2); Basophils % 0.7 % (0.0-0.8); Eosinophils # 0.2 10*3/uL (0.0-0.87); Eosinophils % 2.7 % (0.00-10.9); Hematocrit 20.3 VOL% (35.7-47.0); Immature Granulocytes % 0.9 %; Immature Granulocytes Absolute 0.07 #; Lymphocytes # 0.4 10*3/uL (1.4-4.0); Lymphocytes % 5.1 % (21.3-54.2); Mean Corpuscular HGB Conc 28.6 GM/DL (32-36); Mean Corpuscular Volume 88.3 FL (87-102); Mean Platelet Volume 9.7 FL (9.6-12.0); Monocytes % 12.5 % (1.7-12.7); NRBC # 0.13 10*3/uL; Neutrophils % 78.1 % (38.7-73.9); Platelet Count 354 T/CUMM (130-400); Red Cell Distribution Width 20.3 % (9.3-17.3)
[2019-11-15 04:30] LABS: Hemoglobin 5.8 GM/DL (12.0-16.0)
[2019-11-15 04:39] LABS: Ferritin 24.1 ng/ml (8-252)
[2019-11-15 04:46] LABS: Hypochromasia 2+; Microcytosis 1+; Ovalocytes Slight; Platelet Estimate Adequate
[2019-11-15 04:51] LABS: Alanine Aminotransferase 17 U/L (13-56); Albumin 1.6 G/DL (3.4-5.0); Alkaline Phosphatase 70 U/L (45-117); Aspartate Amino Transferase 30 U/L (0-37); Bilirubin,Total < 0.39 MG/DL (0.2-1.0); Blood Urea Nitrogen 72 MG/DL (7-18); Calcium 7.4 MG/DL (8.5-10.1); Estimated Glom Filtration Rate 39 ML/MIN; Glucose 100 MG/DL (74-106); Osmolality,Calculated 284.5 MOS/KG (273-304)
[2019-11-15 06:09] LABS: Albumin 1.6 G/DL (3.4-5.0); Bilirubin,Direct 0.15 MG/DL (0.0-0.20); Bilirubin,Indirect 0.4 MG/DL (0.0-1.0); Bilirubin,Total 0.5 MG/DL (0.2-1.0); Total Protein 4.1 G/DL (6.4-8.3)
[2019-11-15 06:46] LABS: Hepatitis B Core IgM Quant 0.16 Index; Hepatitis B Surface Ag Quant < 0.10 Index; Hepatitis B Surface Ag Result Negative (Negative); Hepatitis C Virus Ab Quant 0.06 Index; Hepatitis C Virus Ab Result Negative (Negative)
[2019-11-15 10:25] LABS: Basophils # 0.1 10*3/uL (0.0-0.2); Basophils % 0.6 % (0.0-0.8); Eosinophils # 0.2 10*3/uL (0.0-0.87); Eosinophils % 2.7 % (0.00-10.9); Hematocrit 22.6 VOL% (35.7-47.0); Hemoglobin 6.6 GM/DL (12.0-16.0); Immature Granulocytes % 0.7 %; Immature Granulocytes Absolute 0.06 #; Lymphocytes # 0.3 10*3/uL (1.4-4.0); Lymphocytes % 4.2 % (21.3-54.2); Mean Corpuscular HGB Conc 29.2 GM/DL (32-36); Mean Platelet Volume 9.7 FL (9.6-12.0); Monocytes % 10.6 % (1.7-12.7); NRBC # 0.09 10*3/uL; Neutrophils % 81.2 % (38.7-73.9); Platelet Count 324 T/CUMM (130-400); Red Blood Count 2.51 MC/CUMM (3.8-5.5); Red Cell Distribution Width 19.7 % (9.3-17.3); White Blood Count 8.2 T/CUMM (4-12)
[2019-11-15 10:52] LABS: Eosinophils 6 % (0-10); Hypochromasia 1+; Lymphocytes 5 % (20-55); Platelet Estimate Adequate; Segmented Neutrophils 83 % (50-85); Total Cells Counted 100
[2019-11-15 10:53] LABS: Microcytosis 1+
[2019-11-15] MEDS ORDERED: FUROSEMIDE 40 MG/4 ML VIAL ONE (11:21)
[2019-11-15] MEDS ORDERED: FUROSEMIDE 40 MG/4 ML VIAL IV ONE (13:53)
[2019-11-15] MEDS: metOLazone 5 MG TABLET PO SCH (14:03)
[2019-11-15] MEDS: SPIRONOLACTONE 50 MG TABLET PO SCH (14:38)
[2019-11-15 16:37] LABS: Hematocrit 25.5 VOL% (35.7-47.0); Hemoglobin 7.6 GM/DL (12.0-16.0)
[2019-11-15 17:11] LABS: INR 3.6; PT Patient Result 35.8 SECS (9.8-11.9)
[2019-11-15] MEDS: WARFARIN 2 MG TABLET PO SCH (18:07)
[2019-11-15] MEDS ORDERED: CYANOCOBALAMIN 1000 MCG/1 ML VIAL SUBCUT SCH (21:00)
[2019-11-15] MEDS: MAGNESIUM OXIDE 400 MG TABLET PO SCH (21:48)
[2019-11-16 06:13] LABS: INR 2.6; PT Patient Result 26.5 SECS (9.8-11.9)
[2019-11-16 08:39] LABS: Albumin 1.6 G/DL (3.4-5.0); Bilirubin,Total 0.7 MG/DL (0.2-1.0); Calcium 7.6 MG/DL (8.5-10.1); Osmolality,Calculated 290.1 MOS/KG (273-304); Total Protein 4.3 G/DL (6.4-8.3)
[2019-11-16] MEDS: CITALOPRAM 20 MG TABLET PO SCH (09:45)
[2019-11-16] MEDS: allopurinoL 100 MG TABLET PO SCH (09:45)
[2019-11-16] MEDS: metOLazone 5 MG TABLET PO SCH (09:45)
[2019-11-16] MEDS: MAGNESIUM OXIDE 400 MG TABLET PO SCH ×2 (09:46→20:44)
[2019-11-16] MEDS: SPIRONOLACTONE 50 MG TABLET PO SCH (09:46)
[2019-11-16] MEDS: SODIUM CHLORIDE 0.9% 1,000 ML IV SCH (14:35)
[2019-11-16] MEDS: WARFARIN 2 MG TABLET PO SCH (17:23)
[2019-11-16] MEDS: TEMAZEPAM 15 MG CAPSULE PO PRN (23:55)
[2019-11-17 08:12] LABS: Albumin 1.5 G/DL (3.4-5.0); Bilirubin,Total 0.4 MG/DL (0.2-1.0); Calcium 7.5 MG/DL (8.5-10.1); Osmolality,Calculated 280.7 MOS/KG (273-304); Total Protein 4.4 G/DL (6.4-8.3)
[2019-11-17] MEDS: SPIRONOLACTONE 50 MG TABLET PO SCH (09:08)
[2019-11-17] MEDS: CITALOPRAM 20 MG TABLET PO SCH (09:08)
[2019-11-17] MEDS: MAGNESIUM OXIDE 400 MG TABLET PO SCH ×2 (09:08→20:58)
[2019-11-17] MEDS: allopurinoL 100 MG TABLET PO SCH (09:08)
[2019-11-17 09:28] LABS: Basophils # 0.1 10*3/uL (0.0-0.2); Basophils % 0.7 % (0.0-0.8); Eosinophils # 0.3 10*3/uL (0.0-0.87); Eosinophils % 3.9 % (0.00-10.9); Hematocrit 26.5 VOL% (35.7-47.0); Hemoglobin 7.9 GM/DL (12.0-16.0); Immature Granulocytes % 0.7 %; Immature Granulocytes Absolute 0.05 #; Lymphocytes # 0.4 10*3/uL (1.4-4.0); Lymphocytes % 4.7 % (21.3-54.2); Mean Corpuscular HGB Conc 29.8 GM/DL (32-36); Mean Corpuscular Volume 87.7 FL (87-102); Mean Platelet Volume 9.9 FL (9.6-12.0); Monocytes % 7.6 % (1.7-12.7); NRBC # 0.04 10*3/uL; Neutrophils % 82.4 % (38.7-73.9); Platelet Count 277 T/CUMM (130-400); Red Blood Count 3.02 MC/CUMM (3.8-5.5); Red Cell Distribution Width 19.7 % (9.3-17.3); White Blood Count 7.5 T/CUMM (4-12)
[2019-11-17 09:37] LABS: INR 2.3; PT Patient Result 23.3 SECS (9.8-11.9)
[2019-11-17 10:09] LABS: Eosinophils 6 % (0-10); Hypochromasia 2+; Lymphocytes 4 % (20-55); Nucleated Red Blood Cells 1 (0-5); Ovalocytes Slight; Platelet Estimate Adequate; Segmented Neutrophils 84 % (50-85); Total Cells Counted 100
[2019-11-17 10:10] LABS: Microcytosis 1+
[2019-11-17] MEDS ORDERED: ALBUMIN 25% 25 GM in PREMIX 1 EACH IV ONE ×2 (10:57→18:00)
[2019-11-17] MEDS ORDERED: FUROSEMIDE 40 MG TABLET PO ONE ×2 (10:57→18:00)
[2019-11-17] MEDS: WARFARIN 2 MG TABLET PO SCH (18:30)
[2019-11-17] MEDS: TEMAZEPAM 15 MG CAPSULE PO PRN (21:03)
[2019-11-18 08:55] LABS: Basophils # 0.1 10*3/uL (0.0-0.2); Basophils % 0.9 % (0.0-0.8); Eosinophils # 0.3 10*3/uL (0.0-0.87); Eosinophils % 4.6 % (0.00-10.9); Hematocrit 25.9 VOL% (35.7-47.0); Hemoglobin 7.5 GM/DL (12.0-16.0); Immature Granulocytes % 0.9 %; Immature Granulocytes Absolute 0.07 #; Lymphocytes # 0.4 10*3/uL (1.4-4.0); Lymphocytes % 5.8 % (21.3-54.2); Mean Corpuscular Volume 88.7 FL (87-102); Mean Platelet Volume 10.2 FL (9.6-12.0); Monocytes % 10.3 % (1.7-12.7); NRBC # 0.02 10*3/uL; Neutrophils % 77.5 % (38.7-73.9); Platelet Count 279 T/CUMM (130-400); Red Blood Count 2.92 MC/CUMM (3.8-5.5); Red Cell Distribution Width 19.9 % (9.3-17.3); White Blood Count 7.5 T/CUMM (4-12)
[2019-11-18 09:21] LABS: Calcium 7.7 MG/DL (8.5-10.1); Osmolality,Calculated 284.5 MOS/KG (273-304); PT Patient Result 20.7 SECS (9.8-11.9)
[2019-11-18] MEDS: CITALOPRAM 20 MG TABLET PO SCH (09:32)
[2019-11-18] MEDS: allopurinoL 100 MG TABLET PO SCH (09:32)
[2019-11-18] MEDS: metOLazone 5 MG TABLET PO SCH (09:32)
[2019-11-18] MEDS: SPIRONOLACTONE 50 MG TABLET PO SCH (09:32)
[2019-11-18] MEDS: MAGNESIUM OXIDE 400 MG TABLET PO SCH (09:33)
[2019-11-18 11:54] VITALS: BP 100/53
== END 2019-11-18 14:48 | disposition home or self-care (01) | DRG 844 ==
LOC: N.ED 19:32 → N.EDINP 11-15 01:44 → SUATTDRO 11-15 01:44 → N.TELES 11-15 12:58
PROVIDERS: ADMIT Internal Medicine; ATTEND Internal Medicine

== ENCOUNTER 2019-12-08 05:56 | Inpatient (IN) ==
[2019-12-08] MEDS ORDERED: PANTOPRAZOLE 40 MG VIAL IV STA (06:28)
[2019-12-08] MEDS ORDERED: ONDANSETRON 4 MG/2 ML VIAL IV STA (06:28)
[2019-12-08] MEDS ORDERED: ONDANSETRON 4 MG/2 ML VIAL IV ONE (07:11)
[2019-12-08 07:19] LABS: Basophils % 0.2 % (0.0-0.8); Eosinophils % 0.2 % (0.00-10.9); Immature Granulocytes % 1.6 %; Immature Granulocytes Absolute 0.14 #; Lymphocytes # 0.4 10*3/uL (1.4-4.0); Lymphocytes % 4.9 % (21.3-54.2); Mean Corpuscular HGB Conc 29.8 GM/DL (32-36); Mean Corpuscular Volume 98.7 FL (87-102); Mean Platelet Volume 11.1 FL (9.6-12.0); Monocytes % 7.6 % (1.7-12.7); Neutrophils % 85.5 % (38.7-73.9); Platelet Count 201 T/CUMM (130-400); Red Blood Count 1.53 MC/CUMM (3.8-5.5); Red Cell Distribution Width 26.3 % (9.3-17.3)
[2019-12-08 07:27] LABS: Hematocrit 15.1 VOL% (35.7-47.0); Hemoglobin 4.5 GM/DL (12.0-16.0)
[2019-12-08 07:30] LABS: Alanine Aminotransferase 16 U/L (13-56); Albumin 1.1 G/DL (3.4-5.0); Alkaline Phosphatase 46 U/L (45-117); Aspartate Amino Transferase 28 U/L (0-37); Bilirubin,Total < 0.39 MG/DL (0.2-1.0); Blood Urea Nitrogen 92 MG/DL (7-18); Calcium 6.7 MG/DL (8.5-10.1); Estimated Glom Filtration Rate 48 ML/MIN; Glucose 158 MG/DL (74-106); Total Protein 3.7 G/DL (6.4-8.3)
[2019-12-08 07:45] LABS: Anisocytosis 3+; Band Neutrophils 2 % (0-10); Lymphocytes 3 % (20-55); PT Patient Result 159.6 SECS (9.8-11.9); Platelet Estimate Normal; Segmented Neutrophils 87 % (50-85); Total Cells Counted 100
[2019-12-08 07:47] LABS: Ovalocytes Few; Poikilocytosis 1+; Polychromasia Slight
[2019-12-08 08:00] LABS: INR 17.4
[2019-12-08] MEDS: PANTOPRAZOLE INJ 200 MG in SODIUM CHLORIDE 0.9% 250 ML IV SCH (08:02)
[2019-12-08] MEDS ORDERED: PHYTONADIONE 10 MG/1 ML AMP SUBCUT STA (08:06)
[2019-12-08] MEDS ORDERED: SODIUM CHLORIDE 0.9% 1,000 ML IV PRN ×4 (08:09→18:40)
[2019-12-08] MEDS ORDERED: GLUCAGON 1 MG VIAL IM PRN (09:46)
[2019-12-08] MEDS ORDERED: DEXTROSE 50% 25 GM/50 ML VIAL IV PRN (09:46)
[2019-12-08] MEDS ORDERED: SODIUM CHLORIDE 0.9% 1,000 ML IV SCH (10:00)
[2019-12-08] MEDS ORDERED: ALBUMIN 25% 50 GM in PREMIX 1 EACH IV ONE (11:08)
[2019-12-08] MEDS: ONDANSETRON 4 MG/2 ML VIAL IV PRN ×2 (11:43→18:21)
[2019-12-08] MEDS: cefTRIAXone 1,000 MG in SYRINGE 1 EACH IV SCH (11:44)
[2019-12-08 13:54] LABS: Hemoglobin 4.7 GM/DL (12.0-16.0)
[2019-12-08 13:55] LABS: Hematocrit 15.2 VOL% (35.7-47.0)
[2019-12-08] MEDS ORDERED: OCTREOTIDE 100 MCG/ML SYRINGE IV ONE (15:00)
[2019-12-08 16:10] LABS: Hemoglobin 4.2 GM/DL (12.0-16.0)
[2019-12-08 16:11] LABS: Hematocrit 14.3 VOL% (35.7-47.0)
[2019-12-08] MEDS ORDERED: ACETAMINOPHEN 500 MG TABLET PO ONE (18:49)
[2019-12-08] MEDS ORDERED: methylPREDNISolone SOD SUC 40 MG/1 ML VIAL IV ONE (18:49)
[2019-12-08] MEDS ORDERED: diphenhydrAMINE 50 MG/1 ML VIAL IV ONE (18:50)
[2019-12-08] MEDS ORDERED: FUROSEMIDE 20 MG/2 ML VIAL IV ONE (18:57)
[2019-12-08 19:54] LABS: PT Patient Result 119.7 SECS (9.8-11.9)
[2019-12-08 19:57] LABS: INR 12.8
[2019-12-08] MEDS ORDERED: PANTOPRAZOLE 40 MG VIAL IV SCH (21:00)
[2019-12-08] MEDS: OCTREOTIDE 500 MCG in SODIUM CHLORIDE 0.9% 100 ML IV SCH (21:25)
[2019-12-09] MEDS: OCTREOTIDE 500 MCG in SODIUM CHLORIDE 0.9% 100 ML IV SCH ×4 (01:00→21:54)
[2019-12-09 03:27] LABS: Bacteria,Urine Occasional /HPF (Few); Bilirubin,Urine Negative (Negative); Blood, Urine Negative (Negative); Glucose,Urine (UA) Negative (Negative); Hyaline Casts,Urine 4 /LPF (0-3); Ketones,Urine Negative (Negative); Nitrite,Urine Negative (Negative); Protein,Urine Negative; Squamous Epithelial Cell,Urine Occasional /HPF (0-10); Urine Appearance Slightly Hazy (Clear); Urine Color Yellow (Yellow); Urine Specific Gravity 1.013 (1.001-1.035); Urine Urobilinogen < 2.0 EU/DL (0.2-1.0); WBC,Urine 11 /HPF (0-6)
[2019-12-09] MEDS ORDERED: FUROSEMIDE 20 MG/2 ML VIAL IV ONE (09:00)
[2019-12-09] MEDS: PANTOPRAZOLE INJ 200 MG in SODIUM CHLORIDE 0.9% 250 ML IV SCH (09:03)
[2019-12-09 09:42] LABS: Basophils % 0.2 % (0.0-0.8); Hematocrit 22.5 VOL% (35.7-47.0); Immature Granulocytes % 1.6 %; Lymphocytes # 0.4 10*3/uL (1.4-4.0); Lymphocytes % 6.6 % (21.3-54.2); Mean Corpuscular HGB Conc 31.1 GM/DL (32-36); Mean Corpuscular Volume 91.8 FL (87-102); Mean Platelet Volume 10.9 FL (9.6-12.0); Monocytes % 1.6 % (1.7-12.7); NRBC # 0.03 10*3/uL; Platelet Count 183 T/CUMM (130-400); Red Cell Distribution Width 26.5 % (9.3-17.3); White Blood Count 6.3 T/CUMM (4-12)
[2019-12-09 09:51] LABS: Red Blood Count 2.45 MC/CUMM (3.8-5.5)
[2019-12-09 10:01] LABS: INR 1.7; PT Patient Result 17.9 SECS (9.8-11.9)
[2019-12-09 10:03] LABS: INR 1.7; PT Patient Result 17.3 SECS (9.8-11.9); Partial Thromboplastin Time 37.4 SECS (23.9-33.8)
[2019-12-09 10:12] LABS: Albumin 2.3 G/DL (3.4-5.0); Bilirubin,Total 1.3 MG/DL (0.2-1.0); Calcium 7.5 MG/DL (8.5-10.1); Osmolality,Calculated 293.4 MOS/KG (273-304); Total Protein 4.9 G/DL (6.4-8.3)
[2019-12-09 10:36] LABS: Anisocytosis 2+; Hypochromasia 2+; Microcytosis 2+; Polychromasia Slight
[2019-12-09 10:37] LABS: Platelet Estimate Adequate
[2019-12-09] MEDS: cefTRIAXone 1,000 MG in SYRINGE 1 EACH IV SCH (11:42)
[2019-12-09] MEDS: ALBUMIN 25% 25 GM in PREMIX 1 EACH IV SCH ×2 (11:43→18:27)
[2019-12-09] MEDS ORDERED: LACTATED RINGERS 1,000 ML IV SCH (13:00)
[2019-12-09] MEDS ORDERED: ETOMIDATE 40 MG/20 ML VIAL IV ONE (13:55)
[2019-12-09] MEDS ORDERED: propofoL 200 MG/20 ML VIAL IV ONE (13:55)
[2019-12-09] MEDS ORDERED: LIDOCAINE 2% 5 ML VIAL ONE (13:55)
[2019-12-09 16:18] LABS: Hematocrit 27.1 VOL% (35.7-47.0); Hemoglobin 8.3 GM/DL (12.0-16.0)
[2019-12-09 16:53] LABS: Neutrophils,Peritoneal Fluid 77 %
[2019-12-09 16:54] LABS: RBC,Peritoneal Fluid 2919 T/CUMM
[2019-12-09] MEDS: WARFARIN 2 MG TABLET PO SCH (21:41)
[2019-12-10 03:42] LABS: Basophils % 0.2 % (0.0-0.8); Eosinophils # 0.1 10*3/uL (0.0-0.87); Eosinophils % 0.5 % (0.00-10.9); Hematocrit 28.9 VOL% (35.7-47.0); Hemoglobin 8.7 GM/DL (12.0-16.0); Immature Granulocytes Absolute 0.23 #; Lymphocytes # 0.4 10*3/uL (1.4-4.0); Lymphocytes % 3.7 % (21.3-54.2); Mean Corpuscular HGB Conc 30.1 GM/DL (32-36); Mean Corpuscular Volume 95.7 FL (87-102); Mean Platelet Volume 10.7 FL (9.6-12.0); Monocytes % 10.1 % (1.7-12.7); NRBC # 0.13 10*3/uL; Neutrophils % 83.5 % (38.7-73.9); Platelet Count 184 T/CUMM (130-400); Red Blood Count 3.02 MC/CUMM (3.8-5.5); Red Cell Distribution Width 26.5 % (9.3-17.3); White Blood Count 11.8 T/CUMM (4-12)
[2019-12-10] MEDS: OCTREOTIDE 500 MCG in SODIUM CHLORIDE 0.9% 100 ML IV SCH ×2 (03:42→09:01)
[2019-12-10] MEDS: ALBUMIN 25% 25 GM in PREMIX 1 EACH IV SCH ×3 (03:42→20:55)
[2019-12-10 04:04] LABS: INR 1.6; PT Patient Result 16.8 SECS (9.8-11.9)
[2019-12-10 04:07] LABS: Albumin 2.3 G/DL (3.4-5.0); Bilirubin,Total 1.9 MG/DL (0.2-1.0); Calcium 7.3 MG/DL (8.5-10.1); Osmolality,Calculated 299.2 MOS/KG (273-304); Total Protein 4.4 G/DL (6.4-8.3)
[2019-12-10 06:49] LABS: Anisocytosis 1+; Band Neutrophils 2 % (0-10); Hypochromasia 2+; Lymphocytes 5 % (20-55); Macrocytosis 1+; Metamyelocytes 1 %; Nucleated Red Blood Cells 4 (0-5); Platelet Estimate Normal; Segmented Neutrophils 83 % (50-85); Total Cells Counted 100
[2019-12-10] MEDS ORDERED: FUROSEMIDE 40 MG/4 ML VIAL IV ONE (07:52)
[2019-12-10] MEDS: HEPARIN DRIP 25,000 UNITS/500 ML PREMIX IV SCH (08:15)
[2019-12-10] MEDS: PANTOPRAZOLE 40 MG VIAL IV SCH ×2 (08:15→20:55)
[2019-12-10] MEDS: PANTOPRAZOLE INJ 200 MG in SODIUM CHLORIDE 0.9% 250 ML IV SCH (09:01)
[2019-12-10] MEDS: cefTRIAXone 1,000 MG in SYRINGE 1 EACH IV SCH (10:49)
[2019-12-10] MEDS: CITALOPRAM 20 MG TABLET PO SCH (12:35)
[2019-12-10 14:42] LABS: Hematocrit 26.9 VOL% (35.7-47.0); Hemoglobin 8.1 GM/DL (12.0-16.0)
[2019-12-10 20:18] LABS: Hematocrit 28.8 VOL% (35.7-47.0); Hemoglobin 8.6 GM/DL (12.0-16.0)
[2019-12-10] MEDS: WARFARIN 2 MG TABLET PO SCH (20:55)
[2019-12-10] MEDS ORDERED: WARFARIN 2 MG TABLET PO SCH (21:00)
[2019-12-11] MEDS: ALBUMIN 25% 25 GM in PREMIX 1 EACH IV SCH ×3 (04:38→20:37)
[2019-12-11 06:42] LABS: Basophils % 0.2 % (0.0-0.8); Eosinophils # 0.2 10*3/uL (0.0-0.87); Eosinophils % 2.2 % (0.00-10.9); Immature Granulocytes % 3.1 %; Immature Granulocytes Absolute 0.32 #; Lymphocytes # 0.7 10*3/uL (1.4-4.0); Lymphocytes % 6.8 % (21.3-54.2); Mean Corpuscular HGB Conc 30.8 GM/DL (32-36); Mean Corpuscular Volume 94.9 FL (87-102); Mean Platelet Volume 11.9 FL (9.6-12.0); Monocytes % 9.2 % (1.7-12.7); NRBC # 0.12 10*3/uL; Neutrophils % 78.5 % (38.7-73.9); Platelet Count 140 T/CUMM (130-400); Red Blood Count 2.74 MC/CUMM (3.8-5.5); Red Cell Distribution Width 27.8 % (9.3-17.3); White Blood Count 10.5 T/CUMM (4-12)
[2019-12-11 06:55] LABS: INR 1.6; PT Patient Result 17.1 SECS (9.8-11.9)
[2019-12-11 07:14] LABS: Albumin 2.6 G/DL (3.4-5.0); Bilirubin,Total 1.7 MG/DL (0.2-1.0); Calcium 7.4 MG/DL (8.5-10.1); Osmolality,Calculated 299.4 MOS/KG (273-304); Total Protein 4.4 G/DL (6.4-8.3)
[2019-12-11 09:13] LABS: Platelet Estimate Adequate; Poikilocytosis Slight
[2019-12-11 09:14] LABS: Anisocytosis 3+; Basophilic Stippling Slight; Polychromasia Slight
[2019-12-11] MEDS: CITALOPRAM 20 MG TABLET PO SCH (09:15)
[2019-12-11] MEDS: PANTOPRAZOLE 40 MG VIAL IV SCH ×2 (09:15→20:37)
[2019-12-11] MEDS: HEPARIN DRIP 25,000 UNITS/500 ML PREMIX IV SCH (09:38)
[2019-12-11] MEDS: cefTRIAXone 1,000 MG in SYRINGE 1 EACH IV SCH (12:09)
[2019-12-11] MEDS: WARFARIN 2 MG TABLET PO SCH (20:36)
[2019-12-11] MEDS: ceFAZolin 2,000 MG in SYRINGE 1 EACH IV SCH (20:37)
[2019-12-12 04:09] LABS: INR 1.6; PT Patient Result 17.2 SECS (9.8-11.9)
[2019-12-12] MEDS: ceFAZolin 2,000 MG in SYRINGE 1 EACH IV SCH ×3 (04:25→21:00)
[2019-12-12] MEDS: ALBUMIN 25% 25 GM in PREMIX 1 EACH IV SCH ×3 (04:25→19:45)
[2019-12-12] MEDS ORDERED: METOCLOPRAMIDE 10 MG/2 ML VIAL IV STA (05:54)
[2019-12-12] MEDS ORDERED: WARFARIN 2 MG TABLET PO ONE (08:03)
[2019-12-12] MEDS ORDERED: propofoL 200 MG/20 ML VIAL IV ONE (09:00)
[2019-12-12] MEDS ORDERED: ETOMIDATE 20 MG/10 ML VIAL IV ONE (09:00)
[2019-12-12] MEDS ORDERED: LIDOCAINE 100 MG/5 ML SYRINGE ONE (09:00)
[2019-12-12 09:33] LABS: Basophils % 0.4 % (0.0-0.8); Eosinophils # 0.3 10*3/uL (0.0-0.87); Eosinophils % 3.5 % (0.00-10.9); Hematocrit 27.7 VOL% (35.7-47.0); Immature Granulocytes % 3.3 %; Immature Granulocytes Absolute 0.25 #; Lymphocytes # 0.6 10*3/uL (1.4-4.0); Lymphocytes % 8.1 % (21.3-54.2); Mean Corpuscular HGB Conc 28.9 GM/DL (32-36); Mean Corpuscular Volume 100.7 FL (87-102); Mean Platelet Volume 11.6 FL (9.6-12.0); Monocytes % 9.9 % (1.7-12.7); NRBC # 0.08 10*3/uL; Neutrophils % 74.8 % (38.7-73.9); Platelet Count 125 T/CUMM (130-400); Red Blood Count 2.75 MC/CUMM (3.8-5.5); Red Cell Distribution Width 29.6 % (9.3-17.3); White Blood Count 7.6 T/CUMM (4-12)
[2019-12-12 09:49] LABS: Calcium 7.1 MG/DL (8.5-10.1); Osmolality,Calculated 301.4 MOS/KG (273-304)
[2019-12-12 10:04] LABS: Hypochromasia 1+
[2019-12-12] MEDS: CITALOPRAM 20 MG TABLET PO SCH (10:21)
[2019-12-12] MEDS: PANTOPRAZOLE 40 MG VIAL IV SCH ×2 (10:22→21:07)
[2019-12-12] MEDS ORDERED: POTASSIUM CHLORIDE 20 MEQ TABLET PO ONE (11:29)
[2019-12-12] MEDS: HEPARIN DRIP 25,000 UNITS/500 ML PREMIX IV SCH ×2 (16:28→23:45)
[2019-12-12] MEDS: WARFARIN 2 MG TABLET PO SCH (21:01)
[2019-12-13] MEDS: ALBUMIN 25% 25 GM in PREMIX 1 EACH IV SCH ×3 (04:13→19:47)
[2019-12-13] MEDS: ceFAZolin 2,000 MG in SYRINGE 1 EACH IV SCH ×3 (04:13→21:06)
[2019-12-13 05:34] LABS: Basophils % 0.4 % (0.0-0.8); Eosinophils # 0.3 10*3/uL (0.0-0.87); Eosinophils % 3.8 % (0.00-10.9); Hematocrit 25.1 VOL% (35.7-47.0); Hemoglobin 7.8 GM/DL (12.0-16.0); Immature Granulocytes % 1.9 %; Immature Granulocytes Absolute 0.13 #; Lymphocytes # 0.5 10*3/uL (1.4-4.0); Lymphocytes % 6.6 % (21.3-54.2); Mean Corpuscular HGB Conc 31.1 GM/DL (32-36); Mean Corpuscular Volume 94.7 FL (87-102); Mean Platelet Volume 11.6 FL (9.6-12.0); Monocytes % 10.3 % (1.7-12.7); NRBC # 0.03 10*3/uL; Platelet Count 127 T/CUMM (130-400); Red Blood Count 2.65 MC/CUMM (3.8-5.5); Red Cell Distribution Width 29.8 % (9.3-17.3); White Blood Count 6.9 T/CUMM (4-12)
[2019-12-13 05:50] LABS: INR 1.8
[2019-12-13 05:57] LABS: Hypochromasia 1+
[2019-12-13 06:09] LABS: Calcium 7.6 MG/DL (8.5-10.1); Osmolality,Calculated 303.1 MOS/KG (273-304)
[2019-12-13] MEDS ORDERED: SODIUM CHLORIDE 0.9% 1,000 ML IV PRN (07:24)
[2019-12-13] MEDS ORDERED: FUROSEMIDE 20 MG/2 ML VIAL IV ONE (07:26)
[2019-12-13] MEDS ORDERED: POTASSIUM CHLORIDE 20 MEQ TABLET PO ONE (07:42)
[2019-12-13] MEDS ORDERED: CALCIUM GLUCONATE 2,000 MG in SODIUM CHLORIDE 0.9% 100 ML IV ONE ×2 (08:00→10:00)
[2019-12-13] MEDS: CITALOPRAM 20 MG TABLET PO SCH (08:26)
[2019-12-13] MEDS: PANTOPRAZOLE 40 MG VIAL IV SCH ×2 (08:27→21:07)
[2019-12-13 15:00] LABS: Hemoglobin 7.7 GM/DL (12.0-16.0)
[2019-12-13] MEDS: WARFARIN 2 MG TABLET PO SCH (21:06)
[2019-12-14] MEDS: ALBUMIN 25% 25 GM in PREMIX 1 EACH IV SCH ×3 (03:59→22:02)
[2019-12-14] MEDS: ceFAZolin 2,000 MG in SYRINGE 1 EACH IV SCH ×3 (04:00→22:03)
[2019-12-14 05:53] LABS: Basophils % 0.5 % (0.0-0.8); Eosinophils # 0.3 10*3/uL (0.0-0.87); Eosinophils % 3.7 % (0.00-10.9); Hemoglobin 8.1 GM/DL (12.0-16.0); INR 2.7; Immature Granulocytes % 1.7 %; Immature Granulocytes Absolute 0.14 #; Lymphocytes # 0.7 10*3/uL (1.4-4.0); Lymphocytes % 8.8 % (21.3-54.2); Mean Corpuscular HGB Conc 31.2 GM/DL (32-36); Mean Corpuscular Volume 96.3 FL (87-102); Mean Platelet Volume 11.8 FL (9.6-12.0); Monocytes % 9.7 % (1.7-12.7); NRBC # 0.03 10*3/uL; Neutrophils % 75.6 % (38.7-73.9); PT Patient Result 27.8 SECS (9.8-11.9); Platelet Count 120 T/CUMM (130-400); Red Cell Distribution Width 30.7 % (9.3-17.3); White Blood Count 8.2 T/CUMM (4-12)
[2019-12-14 06:08] LABS: Hypochromasia 1+; Ovalocytes Slight
[2019-12-14 06:09] LABS: Burr Cells Slight
[2019-12-14 06:23] LABS: Alanine Aminotransferase < 6 U/L (13-56); Albumin 2.9 G/DL (3.4-5.0); Alkaline Phosphatase 48 U/L (45-117); Aspartate Amino Transferase 19 U/L (0-37); Blood Urea Nitrogen 110 MG/DL (7-18); Calcium 7.8 MG/DL (8.5-10.1); Estimated Glom Filtration Rate 43 ML/MIN; Glucose 120 MG/DL (74-106); Osmolality,Calculated 310.7 MOS/KG (273-304); Total Protein 4.8 G/DL (6.4-8.3)
[2019-12-14] MEDS ORDERED: CYANOCOBALAMIN 1000 MCG/1 ML VIAL SUBCUT SCH (08:00)
[2019-12-14 08:07] LABS: % Iron Saturation 26.6 % (18-50); Ferritin 272.1 ng/ml (8-252)
[2019-12-14] MEDS ORDERED: SODIUM CHLORIDE 0.9% 1,000 ML IV PRN (09:08)
[2019-12-14] MEDS: allopurinoL 100 MG TABLET PO SCH (09:15)
[2019-12-14] MEDS: FUROSEMIDE 20 MG TABLET PO SCH (09:15)
[2019-12-14] MEDS: PANTOPRAZOLE 40 MG VIAL IV SCH ×2 (09:16→22:02)
[2019-12-14] MEDS: CITALOPRAM 20 MG TABLET PO SCH (09:16)
[2019-12-14] MEDS: WARFARIN 2 MG TABLET PO SCH (22:01)
[2019-12-15] MEDS: ALBUMIN 25% 25 GM in PREMIX 1 EACH IV SCH ×4 (03:57→19:42)
[2019-12-15] MEDS: ceFAZolin 2,000 MG in SYRINGE 1 EACH IV SCH ×3 (05:51→21:01)
[2019-12-15 07:44] LABS: Basophils % 0.4 % (0.0-0.8); Eosinophils # 0.3 10*3/uL (0.0-0.87); Eosinophils % 3.6 % (0.00-10.9); Hematocrit 31.1 VOL% (35.7-47.0); Hemoglobin 9.5 GM/DL (12.0-16.0); Immature Granulocytes Absolute 0.08 #; Lymphocytes # 0.5 10*3/uL (1.4-4.0); Lymphocytes % 5.5 % (21.3-54.2); Mean Corpuscular HGB Conc 30.5 GM/DL (32-36); Mean Corpuscular Volume 96.6 FL (87-102); Mean Platelet Volume 11.8 FL (9.6-12.0); Monocytes % 12.3 % (1.7-12.7); NRBC # 0.02 10*3/uL; Neutrophils % 77.2 % (38.7-73.9); Platelet Count 129 T/CUMM (130-400); Red Blood Count 3.22 MC/CUMM (3.8-5.5); Red Cell Distribution Width 28.9 % (9.3-17.3); White Blood Count 8.1 T/CUMM (4-12)
[2019-12-15 08:00] LABS: Calcium 7.9 MG/DL (8.5-10.1); Osmolality,Calculated 312.5 MOS/KG (273-304)
[2019-12-15 08:02] LABS: Hypochromasia 1+
[2019-12-15 09:11] LABS: Bilirubin,Direct 0.22 MG/DL (0.0-0.20); Bilirubin,Indirect 0.2 MG/DL (0.0-1.0); Bilirubin,Total 0.4 MG/DL (0.2-1.0)
[2019-12-15 09:34] LABS: INR 2.8; PT Patient Result 28.2 SECS (9.8-11.9)
[2019-12-15] MEDS: POTASSIUM CHLORIDE 20 MEQ/15 ML UDCUP PO ONE ×2 (10:09→10:18)
[2019-12-15] MEDS ORDERED: ALBUMIN 25% 50 GM in PREMIX 1 EACH IV ONE (10:10)
[2019-12-15] MEDS: CITALOPRAM 20 MG TABLET PO SCH (10:10)
[2019-12-15] MEDS: PANTOPRAZOLE 40 MG VIAL IV SCH ×2 (10:11→21:02)
[2019-12-15] MEDS: allopurinoL 100 MG TABLET PO SCH (10:11)
[2019-12-15] MEDS: FUROSEMIDE 20 MG TABLET PO SCH ×2 (10:57→15:20)
[2019-12-15] MEDS ORDERED: POTASSIUM CHLORIDE 20 MEQ TABLET PO ONE (11:06)
[2019-12-15] MEDS: SPIRONOLACTONE 50 MG TABLET PO SCH (11:40)
[2019-12-15] MEDS ORDERED: TUBERCULIN SKIN TEST 0.1 ML SYRINGE INTRADERM ONE (12:01)
[2019-12-15] MEDS: ONDANSETRON 4 MG/2 ML VIAL IV PRN (15:28)
[2019-12-15] MEDS ORDERED: WARFARIN 3 MG TABLET PO SCH (18:00)
[2019-12-16] MEDS: ALBUMIN 25% 25 GM in PREMIX 1 EACH IV SCH ×3 (04:01→18:43)
[2019-12-16] MEDS: ceFAZolin 2,000 MG in SYRINGE 1 EACH IV SCH ×3 (05:32→23:07)
[2019-12-16 05:36] LABS: Basophils % 0.5 % (0.0-0.8); Eosinophils # 0.3 10*3/uL (0.0-0.87); Hematocrit 29.7 VOL% (35.7-47.0); Hemoglobin 9.1 GM/DL (12.0-16.0); Immature Granulocytes % 0.9 %; Immature Granulocytes Absolute 0.07 #; Lymphocytes # 0.4 10*3/uL (1.4-4.0); Mean Corpuscular HGB Conc 30.6 GM/DL (32-36); Mean Corpuscular Volume 97.7 FL (87-102); Mean Platelet Volume 11.6 FL (9.6-12.0); Monocytes % 9.8 % (1.7-12.7); Neutrophils % 79.8 % (38.7-73.9); Platelet Count 106 T/CUMM (130-400); Red Blood Count 3.04 MC/CUMM (3.8-5.5); Red Cell Distribution Width 28.6 % (9.3-17.3); White Blood Count 7.9 T/CUMM (4-12)
[2019-12-16 05:46] LABS: INR 3.8; PT Patient Result 38.3 SECS (9.8-11.9)
[2019-12-16 05:53] LABS: Alanine Aminotransferase < 6 U/L (13-56); Albumin 3.3 G/DL (3.4-5.0); Alkaline Phosphatase 50 U/L (45-117); Aspartate Amino Transferase 21 U/L (0-37); Blood Urea Nitrogen 111 MG/DL (7-18); Estimated Glom Filtration Rate 57 ML/MIN; Glucose 110 MG/DL (74-106); Osmolality,Calculated 314.4 MOS/KG (273-304); Total Protein 5.1 G/DL (6.4-8.3)
[2019-12-16 06:46] LABS: Hypochromasia 1+; Ovalocytes Slight
[2019-12-16] MEDS ORDERED: POTASSIUM CHLORIDE 20 MEQ TABLET PO ONE (07:16)
[2019-12-16] MEDS: HEPARIN DRIP 25,000 UNITS/500 ML PREMIX IV SCH (07:28)
[2019-12-16] MEDS: metOLazone 5 MG TABLET PO SCH (09:20)
[2019-12-16] MEDS: FUROSEMIDE 20 MG TABLET PO SCH ×2 (09:20→15:29)
[2019-12-16] MEDS: SPIRONOLACTONE 50 MG TABLET PO SCH (09:21)
[2019-12-16] MEDS: CITALOPRAM 20 MG TABLET PO SCH (09:21)
[2019-12-16] MEDS: PANTOPRAZOLE 40 MG VIAL IV SCH ×2 (09:21→21:09)
[2019-12-16] MEDS: allopurinoL 100 MG TABLET PO SCH (09:21)
[2019-12-17] MEDS: ACETAMINOPHEN 325 MG TABLET PO PRN (00:11)
[2019-12-17] MEDS: ALBUMIN 25% 25 GM in PREMIX 1 EACH IV SCH ×3 (03:17→18:32)
[2019-12-17 05:29] LABS: Basophils % 0.4 % (0.0-0.8); Eosinophils # 0.3 10*3/uL (0.0-0.87); Eosinophils % 3.5 % (0.00-10.9); Hematocrit 29.2 VOL% (35.7-47.0); Hemoglobin 8.9 GM/DL (12.0-16.0); Immature Granulocytes % 0.6 %; Immature Granulocytes Absolute 0.05 #; Lymphocytes # 0.4 10*3/uL (1.4-4.0); Lymphocytes % 4.7 % (21.3-54.2); Mean Corpuscular HGB Conc 30.5 GM/DL (32-36); Mean Corpuscular Volume 95.4 FL (87-102); Mean Platelet Volume 11.8 FL (9.6-12.0); Monocytes % 8.9 % (1.7-12.7); Neutrophils % 81.9 % (38.7-73.9); Platelet Count 120 T/CUMM (130-400); Red Blood Count 3.06 MC/CUMM (3.8-5.5); Red Cell Distribution Width 28.3 % (9.3-17.3); White Blood Count 7.9 T/CUMM (4-12)
[2019-12-17 05:47] LABS: PT Patient Result 49.3 SECS (9.8-11.9)
[2019-12-17 06:06] LABS: Eosinophils 5 % (0-10); Lymphocytes 2 % (20-55); Segmented Neutrophils 86 % (50-85); Total Cells Counted 100
[2019-12-17 06:07] LABS: Anisocytosis 1+; Hypochromasia 1+; Microcytosis 1+; Ovalocytes Slight; Platelet Estimate Adequate; Polychromasia Slight
[2019-12-17 06:08] LABS: Alanine Aminotransferase < 6 U/L (13-56); Albumin 3.3 G/DL (3.4-5.0); Alkaline Phosphatase 53 U/L (45-117); Aspartate Amino Transferase 16 U/L (0-37); Blood Urea Nitrogen 109 MG/DL (7-18); Calcium 8.2 MG/DL (8.5-10.1); Estimated Glom Filtration Rate 57 ML/MIN; Glucose 105 MG/DL (74-106); Osmolality,Calculated 312.4 MOS/KG (273-304)
[2019-12-17] MEDS: ceFAZolin 2,000 MG in SYRINGE 1 EACH IV SCH ×2 (06:22→15:14)
[2019-12-17] MEDS ORDERED: PHYTONADIONE 10 MG/1 ML AMP SUBCUT ONE ×2 (07:40→15:38)
[2019-12-17] MEDS: PANTOPRAZOLE 40 MG VIAL IV SCH ×2 (08:25→20:05)
[2019-12-17] MEDS: SPIRONOLACTONE 50 MG TABLET PO SCH (08:25)
[2019-12-17] MEDS: CITALOPRAM 20 MG TABLET PO SCH (08:25)
[2019-12-17] MEDS: FUROSEMIDE 20 MG TABLET PO SCH ×2 (08:25→15:14)
[2019-12-17] MEDS: allopurinoL 100 MG TABLET PO SCH (08:25)
[2019-12-17 15:15] LABS: PT Patient Result 52.4 SECS (9.8-11.9)
[2019-12-17 15:17] LABS: INR 5.3
[2019-12-17 21:08] LABS: INR 4.8
[2019-12-18] MEDS: ALBUMIN 25% 25 GM in PREMIX 1 EACH IV SCH ×3 (03:00→18:09)
[2019-12-18 06:43] LABS: INR 2.7; PT Patient Result 27.4 SECS (9.8-11.9)
[2019-12-18 07:56] LABS: Basophils # 0.1 10*3/uL (0.0-0.2); Basophils % 0.6 % (0.0-0.8); Eosinophils # 0.3 10*3/uL (0.0-0.87); Hematocrit 29.8 VOL% (35.7-47.0); Hemoglobin 9.2 GM/DL (12.0-16.0); Immature Granulocytes % 0.9 %; Immature Granulocytes Absolute 0.08 #; Lymphocytes # 0.5 10*3/uL (1.4-4.0); Lymphocytes % 5.3 % (21.3-54.2); Mean Corpuscular HGB Conc 30.9 GM/DL (32-36); Mean Corpuscular Volume 96.8 FL (87-102); Mean Platelet Volume 11.3 FL (9.6-12.0); Monocytes % 7.5 % (1.7-12.7); Neutrophils % 82.7 % (38.7-73.9); Platelet Count 132 T/CUMM (130-400); Red Blood Count 3.08 MC/CUMM (3.8-5.5); Red Cell Distribution Width 28.1 % (9.3-17.3); White Blood Count 8.6 T/CUMM (4-12)
[2019-12-18 08:16] LABS: Calcium 8.1 MG/DL (8.5-10.1); Osmolality,Calculated 320.1 MOS/KG (273-304)
[2019-12-18 08:54] LABS: Anisocytosis 1+; Hypochromasia 1+; Microcytosis 1+
[2019-12-18 08:55] LABS: Ovalocytes Slight; Platelet Estimate Adequate; Spherocytes Slight
[2019-12-18] MEDS: PANTOPRAZOLE 40 MG VIAL IV SCH ×2 (09:20→21:00)
[2019-12-18] MEDS: CITALOPRAM 20 MG TABLET PO SCH (09:20)
[2019-12-18] MEDS: SPIRONOLACTONE 50 MG TABLET PO SCH (09:21)
[2019-12-18] MEDS: allopurinoL 100 MG TABLET PO SCH (09:21)
[2019-12-18] MEDS: FUROSEMIDE 20 MG TABLET PO SCH ×2 (09:21→16:49)
[2019-12-18 15:47] LABS: PT Patient Result 20.7 SECS (9.8-11.9)
[2019-12-18] MEDS: WARFARIN 1 MG TABLET PO SCH (21:00)
[2019-12-19] MEDS: ALBUMIN 25% 25 GM in PREMIX 1 EACH IV SCH ×3 (03:19→18:00)
[2019-12-19 06:30] LABS: Basophils # 0.1 10*3/uL (0.0-0.2); Basophils % 0.7 % (0.0-0.8); Eosinophils # 0.3 10*3/uL (0.0-0.87); Eosinophils % 2.9 % (0.00-10.9); Hemoglobin 9.5 GM/DL (12.0-16.0); Immature Granulocytes % 0.9 %; Immature Granulocytes Absolute 0.09 #; Lymphocytes # 0.5 10*3/uL (1.4-4.0); Lymphocytes % 5.2 % (21.3-54.2); Mean Corpuscular HGB Conc 30.6 GM/DL (32-36); Mean Corpuscular Volume 98.1 FL (87-102); Mean Platelet Volume 12.2 FL (9.6-12.0); Monocytes % 8.3 % (1.7-12.7); Platelet Count 143 T/CUMM (130-400); Red Blood Count 3.16 MC/CUMM (3.8-5.5); Red Cell Distribution Width 27.9 % (9.3-17.3); White Blood Count 9.5 T/CUMM (4-12)
[2019-12-19 06:43] LABS: INR 1.7; PT Patient Result 18.2 SECS (9.8-11.9)
[2019-12-19 06:50] LABS: Alanine Aminotransferase < 6 U/L (13-56); Albumin 3.2 G/DL (3.4-5.0); Alkaline Phosphatase 60 U/L (45-117); Aspartate Amino Transferase 18 U/L (0-37); Blood Urea Nitrogen 122 MG/DL (7-18); Calcium 8.3 MG/DL (8.5-10.1); Estimated Glom Filtration Rate 64 ML/MIN; Glucose 117 MG/DL (74-106); Osmolality,Calculated 320.3 MOS/KG (273-304); Total Protein 4.9 G/DL (6.4-8.3)
[2019-12-19 06:58] LABS: Anisocytosis 3+; Platelet Estimate Adequate; Poikilocytosis 1+
[2019-12-19] MEDS: SPIRONOLACTONE 50 MG TABLET PO SCH (08:27)
[2019-12-19] MEDS: CITALOPRAM 20 MG TABLET PO SCH (08:27)
[2019-12-19] MEDS: FUROSEMIDE 20 MG TABLET PO SCH ×2 (08:27→16:47)
[2019-12-19] MEDS: allopurinoL 100 MG TABLET PO SCH (08:28)
[2019-12-19] MEDS: PANTOPRAZOLE 40 MG VIAL IV SCH ×2 (08:28→22:04)
[2019-12-19] MEDS: metOLazone 5 MG TABLET PO SCH (08:52)
[2019-12-19 10:41] LABS: Bacteria,Urine Occasional /HPF (Few); Bilirubin,Urine Negative (Negative); Blood, Urine Small mg/dL (Negative); Glucose,Urine (UA) Negative (Negative); Hyaline Casts,Urine 1 /LPF (0-3); Ketones,Urine Negative (Negative); Mucus,Urine Occasional /LPF (Occasional); Nitrite,Urine Negative (Negative); Protein,Urine Negative; RBC,Urine 2 /HPF (0-4); Urine Appearance CLEAR (Clear); Urine Color Yellow (Yellow); Urine Specific Gravity 1.012 (1.001-1.035); Urine Urobilinogen < 2.0 EU/DL (0.2-1.0); WBC,Urine 1 /HPF (0-6)
[2019-12-19] MEDS ORDERED: LACTULOSE 20 GM/30 ML UDCUP PO PRN (11:00)
[2019-12-19] MEDS ORDERED: LACTULOSE 20 GM/30 ML UDCUP PO ONE (11:23)
[2019-12-19] MEDS: LACTULOSE 20 GM/30 ML UDCUP PO SCH ×3 (14:00→21:59)
[2019-12-19] MEDS: ONDANSETRON 4 MG/2 ML VIAL IV PRN ×2 (14:48→22:08)
[2019-12-19 17:27] LABS: IgA Serum (MAYO) 100 mg/dL (61 - 356)
[2019-12-19] MEDS: WARFARIN 1 MG TABLET PO SCH (17:59)
[2019-12-20] MEDS: LACTULOSE 20 GM/30 ML UDCUP PO SCH ×4 (02:34→22:47)
[2019-12-20] MEDS: ALBUMIN 25% 25 GM in PREMIX 1 EACH IV SCH ×3 (02:34→22:35)
[2019-12-20] MEDS: ONDANSETRON 4 MG/2 ML VIAL IV PRN ×3 (02:39→11:32)
[2019-12-20] MEDS ORDERED: LACTULOSE 20 GM/30 ML UDCUP PO SCH (06:00)
[2019-12-20 06:38] LABS: Basophils % 0.5 % (0.0-0.8); Eosinophils # 0.3 10*3/uL (0.0-0.87); Eosinophils % 3.1 % (0.00-10.9); Hematocrit 28.5 VOL% (35.7-47.0); Hemoglobin 8.6 GM/DL (12.0-16.0); Immature Granulocytes % 0.7 %; Immature Granulocytes Absolute 0.06 #; Lymphocytes # 0.5 10*3/uL (1.4-4.0); Lymphocytes % 5.5 % (21.3-54.2); Mean Corpuscular HGB Conc 30.2 GM/DL (32-36); Mean Corpuscular Volume 97.9 FL (87-102); Mean Platelet Volume 11.5 FL (9.6-12.0); Monocytes % 8.7 % (1.7-12.7); Neutrophils % 81.5 % (38.7-73.9); Platelet Count 146 T/CUMM (130-400); Red Blood Count 2.91 MC/CUMM (3.8-5.5); Red Cell Distribution Width 27.2 % (9.3-17.3); White Blood Count 8.7 T/CUMM (4-12)
[2019-12-20 07:05] LABS: INR 1.3; PT Patient Result 14.2 SECS (9.8-11.9)
[2019-12-20 07:13] LABS: Alanine Aminotransferase < 6 U/L (13-56); Albumin 3.1 G/DL (3.4-5.0); Alkaline Phosphatase 64 U/L (45-117); Aspartate Amino Transferase 26 U/L (0-37); Blood Urea Nitrogen 114 MG/DL (7-18); Calcium 8.5 MG/DL (8.5-10.1); Estimated Glom Filtration Rate 57 ML/MIN; Glucose 109 MG/DL (74-106); Total Protein 4.9 G/DL (6.4-8.3)
[2019-12-20 07:44] LABS: Acanthocytes 2+; Anisocytosis 2+; Elliptocytes Few; Eosinophils 5 % (0-10); Hypochromasia 1+; Lymphocytes 5 % (20-55); Macrocytosis 2+; Ovalocytes 1+; Platelet Estimate Adequate; Segmented Neutrophils 86 % (50-85); Target Cells Few; Total Cells Counted 100
[2019-12-20] MEDS ORDERED: WARFARIN 1 MG TABLET PO SCH (07:56)
[2019-12-20] MEDS: CITALOPRAM 20 MG TABLET PO SCH (08:41)
[2019-12-20] MEDS: PANTOPRAZOLE 40 MG VIAL IV SCH ×2 (08:41→22:41)
[2019-12-20] MEDS: POTASSIUM CHLORIDE RIDER 10 MEQ in PREMIX 1 EACH IV PRN ×4 (08:41→18:18)
[2019-12-20] MEDS: FUROSEMIDE 20 MG TABLET PO SCH (08:41)
[2019-12-20] MEDS: SPIRONOLACTONE 50 MG TABLET PO SCH ×2 (08:41→22:47)
[2019-12-20] MEDS: allopurinoL 100 MG TABLET PO SCH (08:42)
[2019-12-20] MEDS: HEPARIN DRIP 25,000 UNITS/500 ML PREMIX IV SCH (09:27)
[2019-12-20] MEDS: FUROSEMIDE 40 MG/4 ML VIAL IV SCH (16:07)
[2019-12-20] MEDS: WARFARIN 2 MG TABLET PO SCH (17:27)
[2019-12-21] MEDS: POTASSIUM CHLORIDE RIDER 10 MEQ in PREMIX 1 EACH IV PRN ×3 (00:24→03:10)
[2019-12-21] MEDS: ONDANSETRON 4 MG/2 ML VIAL IV PRN ×2 (03:10→21:19)
[2019-12-21] MEDS: LACTULOSE 20 GM/30 ML UDCUP PO SCH ×4 (03:10→21:15)
[2019-12-21 04:02] LABS: Basophils # 0.1 10*3/uL (0.0-0.2); Basophils % 0.7 % (0.0-0.8); Eosinophils # 0.4 10*3/uL (0.0-0.87); Eosinophils % 4.3 % (0.00-10.9); Hematocrit 28.9 VOL% (35.7-47.0); Hemoglobin 8.7 GM/DL (12.0-16.0); Immature Granulocytes % 0.7 %; Immature Granulocytes Absolute 0.06 #; Lymphocytes # 0.6 10*3/uL (1.4-4.0); Lymphocytes % 6.6 % (21.3-54.2); Mean Corpuscular HGB Conc 30.1 GM/DL (32-36); Mean Platelet Volume 11.8 FL (9.6-12.0); Monocytes % 8.2 % (1.7-12.7); Neutrophils % 79.5 % (38.7-73.9); Platelet Count 137 T/CUMM (130-400); Red Blood Count 2.92 MC/CUMM (3.8-5.5); Red Cell Distribution Width 26.6 % (9.3-17.3); White Blood Count 8.8 T/CUMM (4-12)
[2019-12-21 04:14] LABS: Calcium 8.3 MG/DL (8.5-10.1); Osmolality,Calculated 310.4 MOS/KG (273-304)
[2019-12-21 04:22] LABS: INR 1.3; PT Patient Result 13.5 SECS (9.8-11.9)
[2019-12-21 04:26] LABS: Hypochromasia 1+; Macrocytosis Slight; Ovalocytes Slight
[2019-12-21] MEDS: ALBUMIN 25% 25 GM in PREMIX 1 EACH IV SCH ×2 (06:15→16:20)
[2019-12-21] MEDS: CITALOPRAM 20 MG TABLET PO SCH (09:11)
[2019-12-21] MEDS: SPIRONOLACTONE 50 MG TABLET PO SCH ×2 (09:11→21:15)
[2019-12-21] MEDS: FUROSEMIDE 40 MG/4 ML VIAL IV SCH ×2 (09:11→16:21)
[2019-12-21] MEDS: HEPARIN DRIP 25,000 UNITS/500 ML PREMIX IV SCH (09:12)
[2019-12-21] MEDS: allopurinoL 100 MG TABLET PO SCH (09:12)
[2019-12-21] MEDS: PANTOPRAZOLE 40 MG VIAL IV SCH ×2 (09:42→21:15)
[2019-12-21] MEDS ORDERED: MAGNESIUM SULF RIDER 2 GM in PREMIX 1 EACH IV ONE (13:05)
[2019-12-21 15:43] LABS: INR 1.2; PT Patient Result 12.9 SECS (9.8-11.9); Partial Thromboplastin Time 75.4 SECS (23.9-33.8)
[2019-12-21] MEDS: WARFARIN 2 MG TABLET PO SCH (18:29)
[2019-12-22 06:11] LABS: Basophils # 0.1 10*3/uL (0.0-0.2); Basophils % 0.9 % (0.0-0.8); Eosinophils # 0.5 10*3/uL (0.0-0.87); Eosinophils % 4.8 % (0.00-10.9); Hematocrit 29.3 VOL% (35.7-47.0); Hemoglobin 8.8 GM/DL (12.0-16.0); Immature Granulocytes % 0.9 %; Immature Granulocytes Absolute 0.08 #; Lymphocytes # 0.6 10*3/uL (1.4-4.0); Lymphocytes % 6.5 % (21.3-54.2); Mean Corpuscular Volume 99.3 FL (87-102); Mean Platelet Volume 11.5 FL (9.6-12.0); Neutrophils % 78.9 % (38.7-73.9); Platelet Count 138 T/CUMM (130-400); Red Blood Count 2.95 MC/CUMM (3.8-5.5); White Blood Count 9.4 T/CUMM (4-12)
[2019-12-22 06:15] LABS: INR 1.2
[2019-12-22 06:28] LABS: Calcium 8.1 MG/DL (8.5-10.1); Osmolality,Calculated 303.7 MOS/KG (273-304)
[2019-12-22 06:38] LABS: Alanine Aminotransferase < 9 U/L (13-56); Albumin 2.8 G/DL (3.4-5.0); Alkaline Phosphatase 57 U/L (45-117); Aspartate Amino Transferase 20 U/L (0-37); Blood Urea Nitrogen 87 MG/DL (7-18); Calcium 8.2 MG/DL (8.5-10.1); Estimated Glom Filtration Rate 43 ML/MIN; Glucose 101 MG/DL (74-106); Osmolality,Calculated 305.4 MOS/KG (273-304); Total Protein 4.6 G/DL (6.4-8.3)
[2019-12-22 06:39] LABS: Platelet Estimate Adequate
[2019-12-22 06:40] LABS: Anisocytosis 2+; Macrocytosis 2+; Ovalocytes Few; Poikilocytosis 1+
[2019-12-22 06:41] LABS: Basophilic Stippling Slight
[2019-12-22] MEDS: ALBUMIN 25% 25 GM in PREMIX 1 EACH IV SCH ×4 (08:26→22:23)
[2019-12-22] MEDS: LACTULOSE 20 GM/30 ML UDCUP PO SCH ×3 (08:27→20:16)
[2019-12-22] MEDS: CITALOPRAM 20 MG TABLET PO SCH (08:28)
[2019-12-22] MEDS: allopurinoL 100 MG TABLET PO SCH (08:29)
[2019-12-22] MEDS: SPIRONOLACTONE 50 MG TABLET PO SCH ×2 (08:29→20:12)
[2019-12-22] MEDS ORDERED: ZINC OXIDE PASTE 113 GM TUBE TOP PRN (12:10)
[2019-12-22] MEDS ORDERED: NYSTATIN CREAM 15 GM TUBE TOP SCH (12:30)
[2019-12-22] MEDS: FUROSEMIDE 40 MG/4 ML VIAL IV SCH ×2 (14:37→15:35)
[2019-12-22] MEDS: PANTOPRAZOLE 40 MG VIAL IV SCH ×2 (14:40→20:12)
[2019-12-22] MEDS: HEPARIN DRIP 25,000 UNITS/500 ML PREMIX IV SCH (14:48)
[2019-12-22] MEDS: WARFARIN 3 MG TABLET PO SCH (17:49)
[2019-12-22 19:34] LABS: INR 1.2; PT Patient Result 12.5 SECS (9.8-11.9); Partial Thromboplastin Time 49.6 SECS (23.9-33.8)
[2019-12-22] MEDS: DESITIN 4OZ/NYSTATIN 15 GRAM MIXTURE PASTE TOP SCH (20:16)
[2019-12-22] MEDS: ACETAMINOPHEN 325 MG TABLET PO PRN (22:23)
[2019-12-23] MEDS: LACTULOSE 20 GM/30 ML UDCUP PO SCH ×3 (04:08→21:08)
[2019-12-23 06:02] LABS: Basophils % 0.5 % (0.0-0.8); Eosinophils # 0.4 10*3/uL (0.0-0.87); Eosinophils % 4.5 % (0.00-10.9); Hematocrit 26.3 VOL% (35.7-47.0); Immature Granulocytes % 0.9 %; Immature Granulocytes Absolute 0.07 #; Lymphocytes # 0.5 10*3/uL (1.4-4.0); Lymphocytes % 6.1 % (21.3-54.2); Mean Corpuscular HGB Conc 30.4 GM/DL (32-36); Mean Corpuscular Volume 99.2 FL (87-102); Monocytes % 6.8 % (1.7-12.7); Neutrophils % 81.2 % (38.7-73.9); Platelet Count 138 T/CUMM (130-400); Red Blood Count 2.65 MC/CUMM (3.8-5.5); Red Cell Distribution Width 25.5 % (9.3-17.3); White Blood Count 7.7 T/CUMM (4-12)
[2019-12-23 06:26] LABS: Calcium 8.1 MG/DL (8.5-10.1); Osmolality,Calculated 300.8 MOS/KG (273-304)
[2019-12-23 06:32] LABS: Hypochromasia 1+; Platelet Estimate Normal
[2019-12-23 06:33] LABS: Macrocytosis Slight
[2019-12-23] MEDS: ONDANSETRON 4 MG/2 ML VIAL IV PRN (08:22)
[2019-12-23] MEDS ORDERED: MULTIVITAMIN (BEROCCA) TABLET PO SCH (09:00)
[2019-12-23] MEDS ORDERED: BUMETANIDE 1 MG TABLET PO SCH (09:00)
[2019-12-23 09:08] LABS: INR 1.3; PT Patient Result 13.8 SECS (9.8-11.9)
[2019-12-23 09:47] LABS: Chlamydia trachomatis Not Detected (NotDetected); Clostridium difficile A & B Not Detected (NotDetected); E coli (ETEC) O157 Not Detected (NotDetected); Enterovirus D Not Detected (NotDetected); Pseudomonas aeruginosa Not Detected (NotDetected); Rotavirus A & B Not Detected (NotDetected); Salmonella enterica Not Detected (NotDetected); Yersinia enterocolitica Not Detected (NotDetected)
[2019-12-23] MEDS: TORSEMIDE 20 MG TABLET PO SCH (10:24)
[2019-12-23] MEDS: SPIRONOLACTONE 50 MG TABLET PO SCH ×2 (10:24→21:08)
[2019-12-23] MEDS: allopurinoL 100 MG TABLET PO SCH (10:24)
[2019-12-23] MEDS: PANTOPRAZOLE 40 MG VIAL IV SCH ×2 (10:24→21:08)
[2019-12-23] MEDS: CITALOPRAM 20 MG TABLET PO SCH (10:25)
[2019-12-23] MEDS: DESITIN 4OZ/NYSTATIN 15 GRAM MIXTURE PASTE TOP SCH ×2 (10:26→21:09)
[2019-12-23] MEDS: HEPARIN DRIP 25,000 UNITS/500 ML PREMIX IV SCH (14:30)
[2019-12-23] MEDS: WARFARIN 3 MG TABLET PO SCH (17:28)
[2019-12-24] MEDS: LACTULOSE 20 GM/30 ML UDCUP PO SCH ×3 (06:11→23:11)
[2019-12-24 07:34] LABS: Basophils # 0.1 10*3/uL (0.0-0.2); Basophils % 0.6 % (0.0-0.8); Eosinophils # 0.5 10*3/uL (0.0-0.87); Eosinophils % 6.3 % (0.00-10.9); Hematocrit 26.7 VOL% (35.7-47.0); Hemoglobin 8.1 GM/DL (12.0-16.0); Immature Granulocytes % 0.8 %; Immature Granulocytes Absolute 0.06 #; Lymphocytes # 0.5 10*3/uL (1.4-4.0); Lymphocytes % 6.1 % (21.3-54.2); Mean Corpuscular HGB Conc 30.3 GM/DL (32-36); Mean Corpuscular Volume 99.3 FL (87-102); Mean Platelet Volume 12.5 FL (9.6-12.0); Monocytes % 8.6 % (1.7-12.7); Neutrophils % 77.6 % (38.7-73.9); Platelet Count 160 T/CUMM (130-400); Red Blood Count 2.69 MC/CUMM (3.8-5.5); Red Cell Distribution Width 25.6 % (9.3-17.3); White Blood Count 7.8 T/CUMM (4-12)
[2019-12-24 07:39] LABS: Albumin 2.4 G/DL (3.4-5.0); Bilirubin,Total 1.3 MG/DL (0.2-1.0); Calcium 8.1 MG/DL (8.5-10.1); Osmolality,Calculated 298.8 MOS/KG (273-304); Total Protein 4.3 G/DL (6.4-8.3)
[2019-12-24 08:06] LABS: INR 1.5; PT Patient Result 16.1 SECS (9.8-11.9)
[2019-12-24] MEDS ORDERED: MAGNESIUM SULF RIDER 2 GM in PREMIX 1 EACH IV ONE (08:46)
[2019-12-24] MEDS: SPIRONOLACTONE 50 MG TABLET PO SCH ×2 (09:32→23:08)
[2019-12-24] MEDS: TORSEMIDE 20 MG TABLET PO SCH (09:32)
[2019-12-24] MEDS: CITALOPRAM 20 MG TABLET PO SCH (09:33)
[2019-12-24] MEDS: allopurinoL 100 MG TABLET PO SCH (09:33)
[2019-12-24] MEDS: PANTOPRAZOLE 40 MG VIAL IV SCH ×2 (09:34→23:10)
[2019-12-24] MEDS: DESITIN 4OZ/NYSTATIN 15 GRAM MIXTURE PASTE TOP SCH ×2 (09:38→23:11)
[2019-12-24] MEDS: HEPARIN DRIP 25,000 UNITS/500 ML PREMIX IV SCH (10:53)
[2019-12-24] MEDS: WARFARIN 3 MG TABLET PO SCH (17:35)
[2019-12-24] MEDS: POTASSIUM CHLORIDE RIDER 10 MEQ in PREMIX 1 EACH IV PRN (23:13)
[2019-12-25] MEDS: POTASSIUM CHLORIDE RIDER 10 MEQ in PREMIX 1 EACH IV PRN ×2 (00:15→01:43)
[2019-12-25] MEDS: LACTULOSE 20 GM/30 ML UDCUP PO SCH ×3 (04:44→21:24)
[2019-12-25 05:23] LABS: Hematocrit 27.1 VOL% (35.7-47.0); Hemoglobin 8.3 GM/DL (12.0-16.0); Red Blood Count 2.73 MC/CUMM (3.8-5.5); White Blood Count 8.4 T/CUMM (4-12)
[2019-12-25 05:24] LABS: Basophils # 0.1 10*3/uL (0.0-0.2); Basophils % 0.6 % (0.0-0.8); Eosinophils # 0.4 10*3/uL (0.0-0.87); Eosinophils % 5.1 % (0.00-10.9); Immature Granulocytes % 0.7 %; Immature Granulocytes Absolute 0.06 #; Lymphocytes # 0.6 10*3/uL (1.4-4.0); Lymphocytes % 7.5 % (21.3-54.2); Mean Corpuscular HGB Conc 30.6 GM/DL (32-36); Mean Corpuscular Volume 99.3 FL (87-102); Mean Platelet Volume 12.8 FL (9.6-12.0); Monocytes % 8.9 % (1.7-12.7); Neutrophils % 77.2 % (38.7-73.9); Platelet Count 174 T/CUMM (130-400); Red Cell Distribution Width 25.2 % (9.3-17.3)
[2019-12-25 05:47] LABS: Albumin 2.1 G/DL (3.4-5.0); Bilirubin,Total 0.5 MG/DL (0.2-1.0); Calcium 7.9 MG/DL (8.5-10.1); Total Protein 4.7 G/DL (6.4-8.3)
[2019-12-25 05:53] LABS: INR 2.1; PT Patient Result 21.3 SECS (9.8-11.9)
[2019-12-25 07:23] LABS: Ovalocytes Few; Platelet Estimate Adequate; Polychromasia Slight; Target Cells Few
[2019-12-25 07:24] LABS: Elliptocytes Few; Schistocytes Few
[2019-12-25] MEDS: SPIRONOLACTONE 50 MG TABLET PO SCH ×2 (09:10→21:24)
[2019-12-25] MEDS: CITALOPRAM 20 MG TABLET PO SCH (09:11)
[2019-12-25] MEDS: DESITIN 4OZ/NYSTATIN 15 GRAM MIXTURE PASTE TOP SCH ×2 (09:11→21:32)
[2019-12-25] MEDS: PANTOPRAZOLE 40 MG VIAL IV SCH ×2 (09:11→21:24)
[2019-12-25] MEDS: TORSEMIDE 20 MG TABLET PO SCH (09:11)
[2019-12-25] MEDS: allopurinoL 100 MG TABLET PO SCH (09:11)
[2019-12-25] MEDS ORDERED: WARFARIN 2 MG TABLET PO SCH (18:00)
[2019-12-26] MEDS: LACTULOSE 20 GM/30 ML UDCUP PO SCH ×2 (04:18→11:11)
[2019-12-26 04:57] LABS: Basophils # 0.1 10*3/uL (0.0-0.2); Basophils % 0.7 % (0.0-0.8); Eosinophils # 0.4 10*3/uL (0.0-0.87); Eosinophils % 5.8 % (0.00-10.9); Hematocrit 26.7 VOL% (35.7-47.0); Hemoglobin 8.2 GM/DL (12.0-16.0); Immature Granulocytes % 0.9 %; Immature Granulocytes Absolute 0.06 #; Lymphocytes # 0.6 10*3/uL (1.4-4.0); Lymphocytes % 8.3 % (21.3-54.2); Mean Corpuscular HGB Conc 30.7 GM/DL (32-36); Mean Corpuscular Volume 98.5 FL (87-102); Mean Platelet Volume 12.1 FL (9.6-12.0); Monocytes % 10.3 % (1.7-12.7); Platelet Count 167 T/CUMM (130-400); Red Blood Count 2.71 MC/CUMM (3.8-5.5); Red Cell Distribution Width 25.2 % (9.3-17.3)
[2019-12-26 05:07] LABS: INR 2.2; PT Patient Result 22.9 SECS (9.8-11.9)
[2019-12-26 05:16] LABS: Calcium 8.1 MG/DL (8.5-10.1); Osmolality,Calculated 298.8 MOS/KG (273-304)
[2019-12-26 05:20] LABS: Bilirubin,Total 1.6 MG/DL (0.2-1.0); Calcium 7.9 MG/DL (8.5-10.1); Osmolality,Calculated 299.8 MOS/KG (273-304); Total Protein 4.5 G/DL (6.4-8.3)
[2019-12-26 05:24] LABS: Hypochromasia 1+; Microcytosis Slight; Ovalocytes Slight; Platelet Estimate Normal
[2019-12-26] MEDS: PANTOPRAZOLE 40 MG VIAL IV SCH (08:22)
[2019-12-26] MEDS: SPIRONOLACTONE 50 MG TABLET PO SCH (08:46)
[2019-12-26] MEDS: CITALOPRAM 20 MG TABLET PO SCH (08:46)
[2019-12-26] MEDS: allopurinoL 100 MG TABLET PO SCH (08:46)
[2019-12-26] MEDS: TORSEMIDE 20 MG TABLET PO SCH (08:46)
[2019-12-26] MEDS: DESITIN 4OZ/NYSTATIN 15 GRAM MIXTURE PASTE TOP SCH (08:46)
[2019-12-26 11:55] VITALS: BP 94/54
[2019-12-28 10:23] LABS: Tissue Transglutaminase IgA Ab < 1.2 U/mL
== END 2019-12-26 15:07 | disposition home health service (06) | DRG 813 ==
LOC: EDBD → EDUNIT# → N.ED 05:56 → N.EDINP 07:39 → SUATTDRO 07:39 → N.ICU 12:16 → N.TELES 12-10 16:28 → N.4E 12-12 13:17
PROVIDERS: ADMIT Internal Medicine; ATTEND Family Medicine